=== PATIENT | female | born 1960 | race Caucasian/White ===

== ENCOUNTER 2019-05-24 13:31 | Day surgery (SDC) | payer OTHER ==
[~2019-05-24] VITALS: Ht 210.8 cm; Wt 36.7 kg
[~2019-05-24 13:31] MED LIST: ALBU4; ALBU90OI6 INH; BUDE.5 NEB; COMBIVENT RESPIM4 GM; Flovent 110 MCG12 GM INH; LEVO750 PO; PARO20 PO; PRED10 PO; STIOLTO RESPIMAT4 GM INH; TIOT18 INH; Ventolin5 MG/1 ML INH
--- NOTE | 2019-05-24 13:59 | NUR ---
Ambulatory in Day Surgery History, Chart, Medications and Allergies reviewed before start of procedure. Lungs clear T/O to Auscultation. Patient confirms NPO status and agrees with scheduled surgery. Patient States Post-Procedure ride home has been arranged.
--- NOTE | 2019-05-24 14:02 | NUR ---
05/24/19 1402 Mingo Matthews History, Chart, Medications and Allergies reviewed before start of procedure.MONITOR INTACT WITH CONTINUOUS PULSE OXIMETRY AND INTERMITTENT BP.3-LEAD EKG REVIEWED WITH PHYSICIAN PRIOR TO START OF PROCEDURE.O2 VIA N/C INTACT THROUGHOUT SEDATION/PROCEDURE. See Anesthesia record.
--- NOTE | 2019-05-24 15:09 | NUR ---
Patient up to Ambulate independently. Gait steady. Discharge instructions reviewed with patient. Patient verbalizes understanding. Copy given to patient to take home. Patient States Post-Procedure ride home has been arranged. Discharged via wheelchair to private car for ride home. ALL BELONINGS RETURNED TO PATIENT. CHSCKED TO MAKE SURE PT PERSONAL 02 TANK WAS IN WORKING ORDER AND HAD ENOUGHT 02 IN IT TO GET HOME TO [place]. DR RICE UPDATED.
== END 2019-05-24 23:01 | disposition home or self-care (01) ==
LOC: ORSCMMR 13:31 → ORD 14:30 → ORSCMMR 14:30
PROVIDERS: Internal Medicine Gastroenterology
PROC: 0DBM8ZX Excision of Descending Colon, Via Natural or Artificial Opening Endoscopic, Diagnostic (ICD-10-PCS; principal; 2019-05-24 14:30)
DX: Z12.11 Encounter for screening for malignant neoplasm of colon (principal); D12.4 Benign neoplasm of descending colon; K62.89 Other specified diseases of anus and rectum; K57.30 Diverticulosis of large intestine without perforation or abscess without bleeding; J44.9 Chronic obstructive pulmonary disease, unspecified; Z99.81 Dependence on supplemental oxygen; F17.210 Nicotine dependence, cigarettes, uncomplicated; K64.8 Other hemorrhoids; Z79.899 Other long term (current) drug therapy
CPT/HCPCS: 88305; J2704; J7120

== ENCOUNTER 2019-12-14 10:02 | Inpatient (IN) | payer OTHER ==
[~2019-12-14] VITALS: Ht 160 cm; Wt 39.3 kg
[~2019-12-14 10:02] MED LIST changes: -COMBIVENT RESPIM4 GM; +FLOVENT HFA12 GM INH; -Flovent 110 MCG12 GM INH; +IPRAT-ALBUT 0.5-3 ML NEB; +STIOLTO RESPIMAT4 G1 INH
[2019-12-14 10:42] LABS: BASOPHILS ABSOLUTE AUTO 0.02 K/mm3 (0.00-0.23); BASOPHILS PERCENT AUTO 0 % (0-2); EOSINOPHILS PERCENT AUTO 0 % (0-6); Hematocrit 46.1 % (33.0-51.0); Hemoglobin 14.7 g/dL (11.5-16.0); IMMATURE GRAN ABSOLUTE AUTO 0.03 K/mm3 (0.00-0.10); IMMATURE GRAN PERCENT AUTO 0 % (0-1); LYMPHOCYTES ABSOLUTE AUTO 0.56 K/mm3 (0.84-5.20); LYMPHOCYTES PERCENT AUTO 5 % (21-46); MONOCYTES ABSOLUTE AUTO 0.42 K/mm3 (0.16-1.47); MONOCYTES PERCENT AUTO 4 % (4-13); Mean Corpuscular HGB 30.8 pg (26.0-34.0); Mean Corpuscular HGB Conc 31.9 g/dL (31.5-36.5); Mean Corpuscular Volume 97 fL (80-100); Mean Platelet Volume 9.6 fL (9.1-12.4); NEUTROPHILS ABSOLUTE AUTO 10.07 K/mm3 (1.96-9.15); NEUTROPHILS PERCENT AUTO 91 % (41-73); Platelet Count 291 K/mm3 (150-400); RDW Coefficient Variation 11.5 % (11.7-14.2); Red Blood Cell Count 4.77 M/mm3 (3.80-5.20)
[2019-12-14 11:02] LABS: Alanine Aminotransfer (ALT/SGP 24 U/L (12-78); Albumin, Blood 3.7 g/dL (3.4-5.0); Albumin/Globulin Ratio 0.8 (0.8-1.8); Alk Phos 90 U/L (50-136); Anion Gap 6 mmol/L (6-16); Aspartate Aminotrans (AST/SGOT 47 U/L (12-37); Bilirubin, Total 0.4 mg/dL (0.1-1.0); Blood Urea Nitrogen 17 mg/dL (8-24); Bun/Creatinine Ratio 35.3 (12.0-20.0); CO2, Blood 31 mmol/L (21-32); Calcium, Blood 8.9 mg/dL (8.5-10.1); Chloride, Blood 90 mmol/L (98-108); Creatinine, Blood 0.48 mg/dL (0.40-1.00); Globulin, Blood 4.7 g/dL (2.2-4.0); Glomerular Filtration Rate >60 (60-); Glucose, Blood 84 mg/dL (70-99); Potassium, Blood 4.8 mmol/L (3.5-5.5); Sodium, Blood 127 mmol/L (136-145); Total Protein, Blood 8.4 g/dL (6.4-8.2); Troponin I 0.072 ng/mL (0.000-0.040)
--- NOTE | 2019-12-14 13:52 | NUR ---
Report received from ED. Expect the pt to arrive shortly to PCU 16.
--- NOTE | 2019-12-14 17:56 | NUR ---
Pt arrived from ED; frail, very thin, with obvious dyspnea, use of accessory muscles and retractions noted. Has been wearing oxygen at 3 l/min. Lung sounds noted: wheezing throughout, no crackles. She has been sitting up or lying her arms and head on the overbed table since she got here. Declined suggestion to sit in high perry's position in the bed as she doesn't feel that she can breathe very well that way. STates that she hasn't slept for 2 nights due to her poor respiratory status. Boyfriend Moisés has often been at the bedside.
--- NOTE | 2019-12-14 18:24 | NUR ---
Pt is sitting on side of bed, elbows on the bedside table. Respiratory rate 22-24/minute, mouth closed, oxygen delivery 3 l/min; spo2 92%. Pt states that when she is not sick and at home she usually runs spo2 of about 94%. She is requesting a breathing tx. Called Jimmie Tomas to request.
--- NOTE | 2019-12-14 22:52 | NUR ---
PATIENT IS RESTLESS, MOVING AROUND IN THE BED, SITTING AT THE BEDSIDE, UP TO THE BR INDEPENDENTLY WITH O2 AT 3L NC. PATIENT DID A TRIAL ON THE BIPAP V30 AT THE START OF THE SHIFT, SHE DID NOT FEEL THAT IT HELPED HER. SHE DID AGREE TO TRY AGAIN WHEN SHE IS READY TO GO TO SLEEP. ACCESSORY MUSCLE USE, TRIPOD POSITIONING TO HELP BREATHING, INSPIRATORY WHEEZE THROUGH OUT INSPIRATION, DECREASED LUNG EXCURSION. OXYGEN SATURATIONS VARY FROM 92-97%. SHE IS ALERT AND ORIENTED AND COOPERATIVE WITH CARE. CALL LIGHT IS IN REACH.
[2019-12-15 04:27] LABS: Hematocrit 44.1 % (33.0-51.0); Hemoglobin 13.9 g/dL (11.5-16.0); Mean Corpuscular HGB 30.9 pg (26.0-34.0); Mean Corpuscular HGB Conc 31.5 g/dL (31.5-36.5); Mean Corpuscular Volume 98 fL (80-100); Mean Platelet Volume 9.9 fL (9.1-12.4); Platelet Count 244 K/mm3 (150-400); RDW Coefficient Variation 11.6 % (11.7-14.2); RDW Standard Deviation 41.9 fL (35.1-46.3); White Blood Cell Count 12.55 K/mm3 (4.00-11.30)
[2019-12-15 04:46] LABS: Anion Gap 7 mmol/L (6-16); Blood Urea Nitrogen 25 mg/dL (8-24); Bun/Creatinine Ratio 49.8 (12.0-20.0); CO2, Blood 28 mmol/L (21-32); Calcium, Blood 8.5 mg/dL (8.5-10.1); Chloride, Blood 92 mmol/L (98-108); Glomerular Filtration Rate >60 (60-); Glucose, Blood 55 mg/dL (70-99); Potassium, Blood 5.2 mmol/L (3.5-5.5); Sodium, Blood 127 mmol/L (136-145)
--- NOTE | 2019-12-15 06:03 | NUR ---
AM LABS: GLUCOSE 55, PATIENT ABLE TO EAT ONE CHOCOLATE PUDDING, AND A SMALL PORTION OF A GRAPE AND ORANGE JUICE. PATIENT WAS ABLE TO GET SOME SLEEP, ABOUT 2-3 HOURS A TIMEwHEN AWAKE, PATIENT IS MOVING FROM CHAIR TO BED ATTEMPING TOGET IN AN OPTIMAL POSTITION TO BREATH. NO COMPLAINTS OF PAIN.
--- NOTE | 2019-12-15 10:26 | NUR ---
PT LETHARGIC ASSISTED FROM SITTING POSITION TO LYING POSITION IN BED. PT SLIGHTLY AWAKENED WHEN SPOKEN TO, RUBBED STERNUM. VSS. PLACED CALL OUT TO DR PEREZ.
--- NOTE | 2019-12-15 10:29 | NUR ---
PT TOO SOMNOLENT TO TAKE PO MEDS AT THIS TIME.
[2019-12-15 10:47] LABS: PCO2 Arterial 76 mmHg (35-45); PO2 Arterial 120 mmHg (80-100); pH Blood Arterial 7.19 (7.35-7.45)
--- NOTE | 2019-12-15 11:03 | NUR ---
DR PEREZ IN TO SEE PT.
[2019-12-15 13:06] LABS: Base Excess Venous 1.2 mmol/L; PCO2 Venous 67.4 mmHg (38-42); PO2 Venous 179 mmHg (38-42); pH Blood Venous 7.24 (7.34-7.37)
--- NOTE | 2019-12-15 13:17 | NUR ---
PT RESTLESS/ATTEMTPING POSITIONS OF COMFORT SITTING ON EDGE OF BED. REPORTS FEELS LIKE CANNOT BREATHE IF LIES BACK IN BED. PT AGREEABLE W/KEEPING BIPAP ON. RT IN TO SWITCH PT TO V60.
[2019-12-15 13:52] LABS: Adenovirus Not Detected (NOT DETECT); Coronavirus 229E Not Detected (NOT DETECT); Coronavirus HKU1 Not Detected (NOT DETECT); Coronavirus NL63 Not Detected (NOT DETECT); Coronavirus OC43 Not Detected (NOT DETECT); Human Metapneumovirus Not Detected (NOT DETECT); Human Rhinovirus/Enterovirus Detected (NOT DETECT); SARS-Cov-2 (COVID-19), BioFire Not Detected (NOT DETECT)
[2019-12-15 13:53] LABS: Bordetella pertussis Not Detected (NOT DETECT); Chlamydophila pneumoniae Not Detected (NOT DETECT); Influenza A/2009-H1 Not Detected (NOT DETECT); Influenza A/H1 Not Detected (NOT DETECT); Influenza A/H3 Not Detected (NOT DETECT); Influenza B Not Detected (NOT DETECT); Mycoplasma pneumoniae Not Detected (NOT DETECT); Parainfluenza Virus 1 Not Detected (NOT DETECT); Parainfluenza Virus 2 Not Detected (NOT DETECT); Parainfluenza Virus 3 Not Detected (NOT DETECT); Parainfluenza Virus 4 Not Detected (NOT DETECT); Respiratory Syncytial Virus Not Detected (NOT DETECT)
--- NOTE | 2019-12-15 14:14 | NUR ---
02 SATS/WEAKNESS FOUND PT W/BIPAP OFF/NC ON SITTING ON BSC. OXIMETRY READ 47%. PT WAS RELUCTANT TO PUT BIPAP MASK BACK ON UNTIL EXPLAINED HOW LOW SATS WERE. AGREED AND MASK WAS PLACED. AFTER APPROXIMATELY 5 MINUTES, SATS INCREASED TO 89-90% ON BIPAP. PT VERY WEAK. SIGNICANT OTHER LIFTED PT FROM BSC BACK TO BED. PT UNABLE TO TAKE ANY STEPS. NOW RESTING IN BED W/EYES CLOSED. MATHEMATICAL PHYSICIST IN ROOM W/PT. CALL LIGHT IN REACH.
--- NOTE | 2019-12-15 14:39 | NUR ---
Echocardiogram completed.
--- NOTE | 2019-12-15 15:46 | NUR ---
Patient arrived via gurney from PCU and was a three person slide transfer. She arrived on BIPAP 14/6 and 35% with sats >90%. She is mostly unresponsive and awakens to nocsious stimuli. Systolic 140's and HR ST 93. She MAEW. Restraints were removed while unresponsive.
--- NOTE | 2019-12-15 15:50 | NUR ---
TRANSFERRED TO ICU HEARD PT'S S.O. YELLING AT PT. ENTERED ROOM TO FIND PT HAD REMOVED BIPAP AND SATS WERE IN 70S. PT SITTING ON EDGE OF BED, LEANING FAR FORWARD. PT'S S.O. TRYING TO GET PT TO PUT BIPAP ON AND PT WAS REFUSING. ATTEMPTED TO EXPLAIN TO PT HER SATS WERE DANGEROUSLY LOW AND NEEDED BIPAP, PT SAID WOULD WEAR MASK BUT PULLED AWAY AND BECAME COMBATIVE WHENEVER ATTEMPTED TO PLACE. CALLED CUSTOMS COMPLIANCE MANAGER, ADDY, TO ROOM FOR ASSISTANCE. PT CONTINUED TO BE COMBATIVE WE ATTEMPTED TO PLACE MASK. PT BECAME SOMNOLENT AND BIPAP WAS PLACED. SATS SLOWLY RETURNED FROM 50S TO MID 90S. DURING THIS TIME, STAFF ASSIST CALLED AND OBTAINED ORDERS TO TRANSFER TO ICU. TRANSFERRED PT TO ICU 10, GAVE NEELAM Lo BEDSIDE REPORT.
[2019-12-15 16:16] LABS: pH Blood Arterial 7.11 (7.35-7.45)
[2019-12-15 16:17] LABS: PCO2 Arterial 97 mmHg (35-45); PO2 Arterial 64 mmHg (80-100)
--- NOTE | 2019-12-15 16:40 | NUR ---
ABG done and modification to BIPAP settings 16/6 and 35% FiO2. Placed temp botello and sent UA and tox screen. patient hyperthermic and applied warm plankets temp94.6
[2019-12-15 16:42] LABS: Source, Urine Catheter
[2019-12-15 16:46] LABS: Appearance, Urine Clear (Clear); Bilirubin, Urine Neg (Neg); Blood, Urine 5+ (Neg); Color, Urine Yellow (P-Yellow); Glucose Qualitative, Urine Neg (Neg); Ketones, Urine 2+ (Neg); Leukocyte Esterase, Urine Neg (Neg); Nitrite, Urine Neg (Neg); Protein, Urine 3+ (Neg); Specific Gravity, Urine 1.025 (1.003-1.022); Urobilinogen, Urine NORM (Normal)
[2019-12-15 16:55] LABS: Bacteria Rare /hpf; Hyaline Casts 0-2 /lpf (0-2); Mucus Mod (0-Heavy); Red Blood Cells, Urine 0-2 /hpf (0-2); Renal Epithelial Rare /hpf (0-Rare); Squamous Epithelial Cells Not Seen /hpf (Few); White Blood Cells, Urine 0-2 /hpf (0-5)
[2019-12-15 16:59] LABS: U Amphetamine Screen Not Detected; U Barbituate Screen Not Detected; U Benzodiazapine Screen Not Detected; U Buprenorphine Screen Not Detected; U Cannabinoids Screen Not Detected; U Cocaine Screen Not Detected; U Methadone Screen Not Detected; U Methamphetamine Screen Not Detected; U Opiates Screen Not Detected; U Oxycodone Screen Not Detected; U Phencyclidine Screen Not Detected; U Propoxyphene Screen Not Detected
--- NOTE | 2019-12-15 17:34 | NUR ---
Patient continues resting quietly with bipap in place and not restrained. Bipap /6 45%. Increased FiO2 just recently for sats 87% now 93%.. Patient still ubtunded and responds to noxiouse stimuli.
[2019-12-15 18:05] LABS: Base Excess Venous 3.2 mmol/L; Bicarbonate Venous 24.7 mmol/L (24.0-30.0); PCO2 Venous 92.4 mmHg (38-42); pH Blood Venous 7.15 (7.34-7.37)
--- NOTE | 2019-12-15 18:41 | NUR ---
Patient started to awake and pulling at mask, placed in bilateral soft wrist at 1800 and she is back to resting, Dr Sellers advised of current VBG and she has no new orders for patient or setting, spouse at bedside.
--- NOTE | 2019-12-15 19:20 | NUR ---
ASSUMED CARE REPORT AND BEDSIDE ROUNDING WITH CHRIS KENNY AT 1905. ASSUMED PT CARE. PT OBTUNDED, RESPONSIVE TO NOXIOUS STIMULI. PT ON BIPAP 16/6/35%, SATS >92%, LUNG SOUNDS DIMINISHED THROUGHOUT. 20G TO RIGHT FA, SITE WNL, DRESSING C/D/I. HR 80'S, SINUS RYTHYM, BP STABLE. PULSES PRESENT AND STRONG. SKIN DRY AND JON, COOL, SOME BRUISING AND SCABS NOTED. PT FAMILY AT BEDSIDE, UPDATED ON PLAN OF CARE FOR SHIFT. HE PUT CONTACT INFO ON BOARD AND IS LEAVING FOR THE NIGHT. PT HAS SOFT BILATERAL WRIST RESTRAINTS SECURED. SEE FULL SHIFT ASSESSMENT
[2019-12-15 21:00] LABS: Base Excess Venous 3.2 mmol/L; Bicarbonate Venous 24.8 mmol/L (24.0-30.0); PCO2 Venous 83.6 mmHg (38-42); PO2 Venous 76.9 mmHg (38-42); pH Blood Venous 7.18 (7.34-7.37)
[2019-12-16 03:32] LABS: Base Excess Venous 1.2 mmol/L; PCO2 Venous 70.4 mmHg (38-42); PO2 Venous 82.8 mmHg (38-42); pH Blood Venous 7.22 (7.34-7.37)
[2019-12-16 03:40] LABS: BASOPHILS ABSOLUTE AUTO 0.03 K/mm3 (0.00-0.23); BASOPHILS PERCENT AUTO 0 % (0-2); EOSINOPHILS PERCENT AUTO 0 % (0-6); Hematocrit 40.5 % (33.0-51.0); Hemoglobin 12.6 g/dL (11.5-16.0); IMMATURE GRAN ABSOLUTE AUTO 0.39 K/mm3 (0.00-0.10); IMMATURE GRAN PERCENT AUTO 2 % (0-1); LYMPHOCYTES PERCENT AUTO 4 % (21-46); MONOCYTES ABSOLUTE AUTO 0.64 K/mm3 (0.16-1.47); MONOCYTES PERCENT AUTO 3 % (4-13); Mean Corpuscular HGB 30.9 pg (26.0-34.0); Mean Corpuscular HGB Conc 31.1 g/dL (31.5-36.5); Mean Corpuscular Volume 99 fL (80-100); Mean Platelet Volume 9.9 fL (9.1-12.4); NEUTROPHILS ABSOLUTE AUTO 17.14 K/mm3 (1.96-9.15); NEUTROPHILS PERCENT AUTO 91 % (41-73); Platelet Count 189 K/mm3 (150-400); RDW Coefficient Variation 11.7 % (11.7-14.2); RDW Standard Deviation 42.6 fL (35.1-46.3); Red Blood Cell Count 4.08 M/mm3 (3.80-5.20)
[2019-12-16 03:56] LABS: Albumin, Blood 3.4 g/dL (3.4-5.0); Anion Gap 5 mmol/L (6-16); Blood Urea Nitrogen 38 mg/dL (8-24); Bun/Creatinine Ratio 59.4 (12.0-20.0); CO2, Blood 30 mmol/L (21-32); Calcium, Blood 8.3 mg/dL (8.5-10.1); Chloride, Blood 96 mmol/L (98-108); Creatinine, Blood 0.64 mg/dL (0.40-1.00); Glomerular Filtration Rate >60 (60-); Glucose, Blood 70 mg/dL (70-99); Phosphorus, Blood 3.6 mg/dL (2.5-4.9); Potassium, Blood 5.6 mmol/L (3.5-5.5); Sodium, Blood 131 mmol/L (136-145)
--- NOTE | 2019-12-16 06:20 | NUR ---
SHIFT SUMMARY PT HAD EVENTFUL NIGHT. PT ALERT TO SELF ONLY BUT MOSTLY RESPONSIVE TO TACTILE STIMULI. PT ON BIPAP 16/6/40%, TOLERATING AT TIMES. PT IN BILATERAL SOFT WRIST RESTRAINTS TO PREVENT REMOVAL OF IVS AND BIPAP MASK (PT DOES NOT TOLERATE BEING OFF BIPAP AND SATS DROP). RESP RATE 16-28, LUNG SOUNDS OVERALL DIMINISHED AND SHALLOW. SATS >92%. PT SR TO ST ON THE MONITOR. BP HAVE BEEN ALL OVER. PRESSURES CURRENTLY WNL DUE TO LEVOPHED INF AT 0.3MCG/MIN (STARTED FOR MULT BP <80 SYSTOLIC). PT HAS PRECEDEX INFUSING AT 0.7MCG/KG/HR TO ALLOW FOR BIPAP. PT HAS NS INFUSING AT 75ML/HR. PER NURSING JUDGEMENT PT KEPT NPO DUE TO RESP DISTRESS AND CONFUSION. SKIN OVERALL DRY AND PALE AND FRAGILE. BRUISING TO EXT, SCAB TO LEFT HAND. PULSES WNL. PATENT TEMP PROBE DUTTA DRAINING SAMEER URINE. PT REQUIRED TWO IVF BOLUSES (RESPONDED WELL). PT HAS 20G TO RIGHT FA, SITE WNL, DRESSING C/D/I. PT HAS 20G TO LEFT AC WITH MEDS INFUSING, SITE WNL, SITE C/D/I. NEW 18G TO RIGHT AC, SITE WNL, DRESSING C/D/I. DAUGHTER JUSTYNA PLANS TO VISIT TODAY FROM [employer], I SPOKE WITH PT BOYFRIEND DAYANA AND UPDATED HIM ON HOW RENATO DID. INSTRUCTED HIM TO ALSO COME DURING VISITING HRS. FAMILY NEEDS TO DISCUSS PT WISHES AND PLAN OF CARE WITH PROVIDER/STAFF. WILL REPORT TO ONCOMING SHIFT.
--- NOTE | 2019-12-16 07:07 | NUR ---
Received report from Kvng KENNY. Patient is sleeping on BIPAP, setting 16/6 40% FiO2 and sats 97%. She responds to noxious stimuli. She is sedated with Precedex 0.7 mcg/kg/hr. She has three IV's 20ga LFA, 18 ga RAC, 18 ga RFA, all dressings intact and sites WNL's. She has Levophed infusing at 4 mcg/min, NS at 75 ml/hr. She has 16 Fr temp botello draining to gravity small amounts of clear yellow urine. She has bilateral soft wrist as when she awakens she pull mask off and lines. RT in room with patient now, no new changes.
--- NOTE | 2019-12-16 09:45 | NUR ---
Patient remains on same vent settings and continues to sat >95%. She remains on same gtts without changes to settings. Bilateral soft wrist restraints for patient line, tubes safety, Significant other at bedside. Held meds until Dr Sellers arrives that are PO meds to see which ones we can change, IV meds given. poor urine output continues.
--- NOTE | 2019-12-16 11:40 | NUR ---
No significant changes with patient. No changes in BIPAP and gtt's. Dr Sellers medt with daughter and significant other and gave update. They want to meet with palliative care and have conference to help with decisions. VSS, See EMR.
[2019-12-16 12:41] LABS: Base Excess Venous -0.4 mmol/L; Bicarbonate Venous 22.6 mmol/L (24.0-30.0); PCO2 Venous 74.7 mmHg (38-42); PO2 Venous 72.2 mmHg (38-42); pH Blood Venous 7.18 (7.34-7.37)
--- NOTE | 2019-12-16 13:30 | NUR ---
Placed 5Fr triple lumen PICC in MAXIME prior to intubation. Same vent and gtt settings. VSS Stable on vent setting but poor ang VBG #'s. She remains in bilateral soft UE restraints. When awakening she still trys to pull at lines and mask.
--- NOTE | 2019-12-16 14:35 | NUR ---
Met with Keiry's dtr, Uriel, and Carl Curiel in ICU waiting room. Pt is currently being intubated and nursing would like PC to have a discussion re: goals of care. Uriel and Moisés state that they have been kept informed by MD and nursing of Keiry's current situation. We discussed disease process and trajectory, treatment options and code status. At this time they would like to have Keiry intubated but do not want to have chest compressions done. Moisés and Uriel would like to take some time to think about if they would like to have Keiry had defibrillation if that would be indicated. Answered their questions and provided them with the booklet hard choices for loving people. Explained now that Keiry is intubated staff will wait to see how she does. Explained that pt's with COPD sometimes have difficulty being extubated. Emotional support given. PC will continue to follow for advanced care planning, symptom management and family support.
--- NOTE | 2019-12-16 15:27 | NUR ---
Patient intubated at 1400, 7.0 ET24 at teeth. Settings AC18, TV 350, Peep 5.0, and FiO2 of 35% with sats >95%. Precedex off Propofol at 60 mcg/kg/min, Levophed at 4 mcg/min, NS at 75ml/hr, placed OG and is clamped, sent sputum sample. Dr Sellers used Etomadate, and Rocuronium for intubation. Wilhelm still draining to gravity small amounts of cleaer yellow urine.
[2019-12-16 16:21] LABS: Base Excess Venous -3.9 mmol/L; Bicarbonate Venous 20.8 mmol/L (24.0-30.0); PCO2 Venous 48.2 mmHg (38-42); PO2 Venous 46.3 mmHg (38-42); pH Blood Venous 7.28 (7.34-7.37)
--- NOTE | 2019-12-16 17:36 | NUR ---
Patient remains intubated and sedated with current vent setting after Dr Sellers made adjustments is AC 14, TV 370, Fio2 35% and PEEP 5 with Sats >94%. She continues to cough occassionally and tries to sit up. Levophed at 5mcg/min with systolic 110's and HR's 70-80's SR. NS continues at 75ml/hr, and Precedex remains off. Patient being sedated propofol at 60mcg/kg/hr and doing well. Wilhelm draing to gravity 350 ml clear yellow urine with 1393 IV in.
--- NOTE | 2019-12-16 21:59 | NUR ---
ASSUMED CARE OF PT, REPORT RCV'D FROM ZOYA RICHTER. PT INTUBATED AND SEDATED, PT WITHDRAWS FROM PAINFUL STIMULI AND IS EASILY AGITATED WITH NOXIOUS STIMULI. VENT SETTINGS AC 14/370/5/35%. SEDATED WITH PROPOFOL 60 MCG/KG/MIN. LEVOPHED INFUSING AT 5 MCG/MIN AT START OF SHIFT, DECREASED TO 4 MCG/MIN AT 2044, MAP>65 AT THIS TIME. WHEEZES HEARD T/O WITH DIM BASES. TEMP DUTTA PATENT AND DRAINING TO GRAVITY. PICC LINE PLACED IN MAXIME, OOZING AROUND SITE. PER PICC NURSE, LEAVE DRESSING TODAY TO FORM CLOT AND CHANGE DURING DAYSHIFT TOMORROW. SEE FULL SHIFT ASSESSMENT.
--- NOTE | 2019-12-17 01:43 | NUR ---
PT DIFFICULT TO SEDATE. PROPOFOL @75 MCG/KG/MIN, 50 MCG FENTANYL GIVEN AND PT STILL THRASHING HEAD BACK/FORTH CAUSING HER TO BECOME DISCONNECTED FROM VENT. RESTARTED PRECEDEX GTT TO ASSIST WITH SEDATION AND ENCOURAGE DECREASED USE OF PROPOFOL.
[2019-12-17 04:12] LABS: BASOPHILS ABSOLUTE AUTO 0.01 K/mm3 (0.00-0.23); BASOPHILS PERCENT AUTO 0 % (0-2); EOSINOPHILS PERCENT AUTO 0 % (0-6); Hematocrit 35.6 % (33.0-51.0); IMMATURE GRAN ABSOLUTE AUTO 0.09 K/mm3 (0.00-0.10); IMMATURE GRAN PERCENT AUTO 1 % (0-1); LYMPHOCYTES ABSOLUTE AUTO 0.08 K/mm3 (0.84-5.20); LYMPHOCYTES PERCENT AUTO 1 % (21-46); MONOCYTES ABSOLUTE AUTO 0.18 K/mm3 (0.16-1.47); MONOCYTES PERCENT AUTO 2 % (4-13); Mean Corpuscular HGB 30.6 pg (26.0-34.0); Mean Corpuscular HGB Conc 30.9 g/dL (31.5-36.5); Mean Corpuscular Volume 99 fL (80-100); NEUTROPHILS ABSOLUTE AUTO 9.89 K/mm3 (1.96-9.15); NEUTROPHILS PERCENT AUTO 96 % (41-73); Platelet Count 154 K/mm3 (150-400); RDW Coefficient Variation 11.9 % (11.7-14.2); RDW Standard Deviation 43.8 fL (35.1-46.3); Red Blood Cell Count 3.59 M/mm3 (3.80-5.20); White Blood Cell Count 10.25 K/mm3 (4.00-11.30)
[2019-12-17 04:19] LABS: Base Excess Venous -0.7 mmol/L; Bicarbonate Venous 23.4 mmol/L (24.0-30.0); PCO2 Venous 49.2 mmHg (38-42); PO2 Venous 67.3 mmHg (38-42); pH Blood Venous 7.32 (7.34-7.37)
[2019-12-17 04:31] LABS: Anion Gap 6 mmol/L (6-16); Blood Urea Nitrogen 26 mg/dL (8-24); Bun/Creatinine Ratio 49.5 (12.0-20.0); CO2, Blood 27 mmol/L (21-32); Calcium, Blood 7.9 mg/dL (8.5-10.1); Chloride, Blood 103 mmol/L (98-108); Creatinine, Blood 0.53 mg/dL (0.40-1.00); Glomerular Filtration Rate >60 (60-); Glucose, Blood 82 mg/dL (70-99); Potassium, Blood 4.8 mmol/L (3.5-5.5); Sodium, Blood 136 mmol/L (136-145)
--- NOTE | 2019-12-17 06:48 | NUR ---
SHIFT SUMMARY PT REMAINS INTUBATED AND SEDATED. VENT SETTINGS AC 14/370/5/25%, PROPOFOL @45 MCG/KG/MIN, PRECEDEX @0.7 MCG/KG/HR, WITH 50 MCG FENTANYL ADJUNCT TO SEDATION. PT DIFFICULT TO SEDATE. LUNG SOUNDS WHEEZY T/O. LEVOPHED GTT OFF AT 0200, BP REMAINS STABLE AND WNL SINCE. 500 ML URINARY OUTPUT FROM CATHETER. PT HAD ONE EPISODE @0600 OF SATS DROPPING TO 56%, FI02 INCREASED TO 100% AND ADDITIONAL SEDATION GIVEN D/T PT FLAILING IN BED. PT REQUIRED APPROXIMATELY 5 MINUTES OF 100% FI02 AND 50 MCG FENTANYL BEFORE RECOVERING. VENT SETTINGS AND SEDATION REMAIN UNCHANGED. WILL REPORT TO DAYSWYFT NURSE.
--- NOTE | 2019-12-17 08:15 | NUR ---
ASSUMED CARE PT. REMAINS SEDATED AND INTUBATED AT THIS TIME. PT. RESPONDS TO PAINFUL STIMULI AND BETH WITH STIMULATION. PT. VENT SETTINGS OF AC 14,TV370, PEEP 5, 25% FIO2. WHEEZES NOTED T/O. PT. HAS PICC LINE INFUSING TO MAXIME. OG TUBE IN PLACE HOWEVER UNALBE TO ASPIRATE AND UNABLE TO FLUSH. OG TUBE PULLED AND WILL BE REPLACED. PT. VSS THIS AM. NADN. PRECEDEX GTT AND PROPOFOL INFUSING FOR SEDATION SEE FLOW SHEET. BILATERAL WRIST RESTRAINTS IN PLACE FOR SAFETY.
--- NOTE | 2019-12-17 10:08 | NUR ---
Met with pt's dtr in ICU. Keiry remains intubated and sedated at this time. Emotional support provided to pt's dtr. Dtr that is here today was not able to be here yesterday. She is tearful, but appropriate and asks questions. Keiry appears comfortable at this time. PC will continue to follow.
--- NOTE | 2019-12-17 11:44 | NUR ---
NEW OG TUBE PLACED VERIFIED VIA AUSCULTATION AND GASTRIC CONTENT RETURN. SECURED WITH PINK TAPE AND FLUSHED WITH 30CC H2O
--- NOTE | 2019-12-17 15:07 | NUR ---
SEDATION VACATION ATTEMPTED TO LOWER PT SEDATION. PT. BEGAN SITTING UP IN BED PULLING ON RESTRAINTS ATTEMPTING TO REACH TOWARDS TUBE. PT. SQUEEZES HANDS TO COMMAND BUT HAS UPWARD GAZE. PT. ARCHES BACK AND THROWS HEAD BACK AND IS RESTLESS IN BED. PT. HR INCREASED TO 130S, BP INCREASED WELL. PT GAGGING ON TUBE AND NOT REORIENTABLE. SEDATION RESTARTED AND FENTANYL PRN GIVEN. PT. CALMED AFTER RESTARTING SEDATION AND HR RETURNED TO BASELINE ALONG WITH BP.
--- NOTE | 2019-12-17 17:13 | NUR ---
SHIFT SUMMARY PT. REMAINS SEDATED AND INTUBATED. PT. DID NOT TOLERATE SEDATION VACATION WELL TODAY BECAME AGGITATED QUICKLY AND WAS DIFFICULT TO RESEDATE. PT. WAS STARTED ON TF TODAY, VITAL HIGH PROTEIN AT 25ML/HR WITH 30ML FLUSH Q4H. PT. REMAINED AFEBRILE, VENT SETTINGS UNCHANGED. FAMILY UPDATED T/O THE DAY. VSS. REPORT TO ONCOMING RN.
--- NOTE | 2019-12-17 17:28 | NUR ---
Initial spiritual care note: No family present at time of visit. Silent prayer and presence provided. I will remain available to family.
--- NOTE | 2019-12-17 21:38 | NUR ---
ASSUMED CARE OF PT, REPORT RCV'D FROM ZOYA NEAL. PT INTUBATED AND SEDATED. VENT SETTINGS AC 14/370/5/30%. PROPOFOL @45 MCG/KG/MIN, PRECEDEX 1.4 MCG/KG/HR. PT EASILY AGITATED AND DIFFICULT TO SEDATED. PT OPENS EYES SPONTANEOUSLY WITH UPWARD GAZE. PT FAILS TO FOLLOW COMMANDS OR OPEN EYES TO VERBAL STIMULI. INSPIRATORY AND EXPIRATORY WHEEZES HEARD BILATERAL UPPER/LOWER LOBES. MINIMAL AMOUNT OF SECRETIONS FROM ETT. TUBE FEEDING INFUSING INTO OGT AT GOAL RATE 25 ML/HR WITH 30 ML Q4 FLUSH. BILATERAL SOFT WRIST RESTRAINTS IN PLACE. TEMP DUTTA PATENT AND DRAINING. PT TEMP 95.9, COVERED PT WITH WARM BLANKETS AND TURNED UP HEAT IN ROOM. PT'S DAUGHTER (JUSTYNA) CALLED, UPDATED WITH PT'S STATUS AND PLAN OF CARE. SEE FULL SHIFT ASSESSMENT.
--- NOTE | 2019-12-17 23:33 | NUR ---
PT SUDDENLY SITTING STRAIGHT UP IN BED ATTEMPTING TO GRAB ETT AND SELF-EXTUBATE. PT'S SATS DROPPED TO 85%. PROPOFOL INCREASED TO 60 MCG/KG/MIN, PRECEDEX REMAINS AT 1.4 MCG/KG/HR, AND PT GIVEN 50 MCG OF FENTANYL. PT RESPONDING TO VERBAL STIMULI AND FOLLOWING COMMANDS TO "SQUEEZE HAND". PT KICKING LEGS VIOLENTLY TRYING TO MOVE HERSELF TO ACCESS ETT. PT PLACED IN BILATERAL SOFT ANKLE RESTRAINTS. BILATERAL SOFT WRIST RESTRAINTS REMAIN TIGHTLY SECURED TO BED. CURTAIN AND DOOR REMAIN OPEN.
[2019-12-18 04:39] LABS: BASOPHILS PERCENT AUTO 0 % (0-2); EOSINOPHILS PERCENT AUTO 0 % (0-6); Hematocrit 34.2 % (33.0-51.0); Hemoglobin 10.9 g/dL (11.5-16.0); IMMATURE GRAN ABSOLUTE AUTO 0.04 K/mm3 (0.00-0.10); IMMATURE GRAN PERCENT AUTO 1 % (0-1); LYMPHOCYTES ABSOLUTE AUTO 0.15 K/mm3 (0.84-5.20); LYMPHOCYTES PERCENT AUTO 2 % (21-46); MONOCYTES ABSOLUTE AUTO 0.25 K/mm3 (0.16-1.47); MONOCYTES PERCENT AUTO 4 % (4-13); Mean Corpuscular HGB 31.1 pg (26.0-34.0); Mean Corpuscular HGB Conc 31.9 g/dL (31.5-36.5); Mean Corpuscular Volume 97 fL (80-100); Mean Platelet Volume 9.6 fL (9.1-12.4); NEUTROPHILS ABSOLUTE AUTO 5.79 K/mm3 (1.96-9.15); NEUTROPHILS PERCENT AUTO 93 % (41-73); Platelet Count 148 K/mm3 (150-400); RDW Coefficient Variation 12.4 % (11.7-14.2); RDW Standard Deviation 44.5 fL (35.1-46.3); Red Blood Cell Count 3.51 M/mm3 (3.80-5.20); White Blood Cell Count 6.23 K/mm3 (4.00-11.30)
[2019-12-18 05:04] LABS: Anion Gap 4 mmol/L (6-16); Blood Urea Nitrogen 16 mg/dL (8-24); Bun/Creatinine Ratio 38.6 (12.0-20.0); CO2, Blood 30 mmol/L (21-32); Chloride, Blood 102 mmol/L (98-108); Creatinine, Blood 0.41 mg/dL (0.40-1.00); Glomerular Filtration Rate >60 (60-); Glucose, Blood 124 mg/dL (70-99); Magnesium, Blood 2.4 mg/dL (1.6-2.4); Phosphorus, Blood 1.5 mg/dL (2.5-4.9); Potassium, Blood 4.3 mmol/L (3.5-5.5); Sodium, Blood 136 mmol/L (136-145)
--- NOTE | 2019-12-18 06:22 | NUR ---
SHIFT SUMMARY PT REMAINS INTUBATED, VENT SETTINGS AC 14/370/5/25%. SEDATED WITH PROPOFOL 45 MCG/KG/MIN, PRECEDEX 1.4 MCG/KG/HR, AND 50 MCG FENTANYL Q1-2H. PT REMAINS IN 4 PT SOFT RESTRAINTS SHE OCCASIONALLY SITS UP IN BED AND BEGINS THRASHING AND KICKING. PT DISCONNECTED VENT ON ONE OCCASION BY THRASHING HEAD AND WAS USING HER LEGS/FEET TO DISCONNECT CORDS. LUNG SOUNDS REMAIN UNCHANGED, WHEEZY T/O. MINIMAL AMOUNT OF SECRETIONS FROM ETT. VSS T/O SHIFT. WILL REPORT TO DAYSHIFT NURSE.
--- NOTE | 2019-12-18 08:04 | NUR ---
Received report from Jacoby KENNY. Patient resting with sedationa nd intubated. She has 7.0 ET and 24 cm at teeth, with vent settings of AC 14, TV 370, FiO2 25%, PEEP 5.0 and sats >90%. She has PICC to [facility] and is infuaing Prpofol at 45 mcg/kg/min, Precedex 1.4 mcg/kg/min, NS 10. She has OG in place with VHP infusing at 25ml goal rate and 30 ml water flushes q4. She is in 4 point soft restraints to protect lines and tubes as she is sitting up in bed and thrashing legs itermittently. Sister has been at bedside since 729. Medicated for pain per MAY. She has 16 Fr temp botello draining to gravity clear yellow urine. She has two peripheral IV right arm dressings intact and sites WNL, flushed and SL'd.
--- NOTE | 2019-12-18 09:30 | NUR ---
Patient continues rto rest on sedtation while intubated. Dr Oliva by to assess and placed on Spon mode with PS 5 Peep 5, FiO2 35%.No changes to any gtt as of this am note. She contnues to awaken intermitently and trys to sit up and is awake enough to knod to questions and goes back to sleep after medicating for pain and agitation. VSS, See EMR.
--- NOTE | 2019-12-18 11:23 | NUR ---
Patient has been started on Fenatnyl gtt at 13 mcg/hr and at 1030 was placed back on AC mode r/t low TV 200's. No gtt setting changes. VSS, See EMR. Precedex 1.5 mcg/kg/hr Propofol 45 mcg/kg/min Fentanyl 13 mcg/hr NS TKO Sodium Phos 110 ml/hr
--- NOTE | 2019-12-18 13:30 | NUR ---
patient has been resting quietly since starting Fentanyl gtt at 13 mcg/min. Vent setting AC 14, TV 370, FiO2 25%, PEEP 5.0 and sats 96%. Shehas infusnig Propofol 45 mcg/kg/min, Precedex 1.4 mcg/kg/hr, NS TKO, Fentanyl 13 mcg/hr. Wilhelm draing small amounts of green tint urine, less than 30 ml/hr. VSS, SEE EMR. OG infusing 25ml/hr of VHP with 30ml water flushes Q4. She remains in 4 point restraints for line and tube protection.
--- NOTE | 2019-12-18 15:32 | NUR ---
No significant changes from last note.
--- NOTE | 2019-12-18 16:29 | NUR ---
Patient received bath and linen change. Changed complete PICC line dressing and is currently at 9cm out and ok to use per Dr Oliva. VSS, See EMR emptied since last lasix 1850 green tint urine. Pulled IV in RAC as it was bleeding. Oral care and repositioning.
--- NOTE | 2019-12-18 17:59 | NUR ---
Patient currently resting well adn remains on vent with setting AC14, TV 370m FiO2 25%, PEEP 5.0 and sats >95%. She has infusing to PICC; Propofol 45 mcg/kg/min, Precedex 0.7 mcg/kg/hr, NS TKO, Fentanyl 13 mcg/hr. Wilhelm put out 1850 ml.
--- NOTE | 2019-12-18 21:43 | NUR ---
ASSUMED CARE OF PT, REPORT RCV'D FROM ZOYA RICHTER. PT INTUBATED, VENT SETTINGS AC 14/370/5/25%. SEDATED WITH PROPOFOL 45 MCG/KG/MIN, PRECEDEX 1 MCG/KG/HR, AND FENTANYL GTT @13 MCG/HR. ORDER FOR FENTANYL GTT IS 12.5 MCG/HR, PUMP CANNOT BE PROGRAMMED FOR .5 MCG, DR. GANT AWARE AND OK WITH 13 MCG/HR INFUSION RATE. PT ALERT TO SOUND, SPONTANEOUSLY OPENS EYES, MOVES ALL EXTREMETIES, PULLS ON RESTRAINTS. PATIENT IN SOFT RESTRAINTS X4 TO PREVENT ACCIDENTAL SELF-EXTUBATION AND PROTECT LINES/CORDS. OGT IN PLACE, VITAL HIGH PROTEIN INFUSING AT GOAL RATE 25 ML/HR WITH 30 ML Q4 FLUSH. TEMP DUTTA PATENT AND DRAINING TO GRAVITY. VSS AT THIS TIME. SEE FULL SHIFT ASSESSMENT.
[2019-12-19 04:48] LABS: BASOPHILS ABSOLUTE AUTO 0.01 K/mm3 (0.00-0.23); BASOPHILS PERCENT AUTO 0 % (0-2); EOSINOPHILS PERCENT AUTO 0 % (0-6); Hematocrit 35.5 % (33.0-51.0); Hemoglobin 11.3 g/dL (11.5-16.0); IMMATURE GRAN ABSOLUTE AUTO 0.03 K/mm3 (0.00-0.10); IMMATURE GRAN PERCENT AUTO 0 % (0-1); LYMPHOCYTES ABSOLUTE AUTO 0.25 K/mm3 (0.84-5.20); LYMPHOCYTES PERCENT AUTO 4 % (21-46); MONOCYTES PERCENT AUTO 6 % (4-13); Mean Corpuscular HGB 30.9 pg (26.0-34.0); Mean Corpuscular HGB Conc 31.8 g/dL (31.5-36.5); Mean Corpuscular Volume 97 fL (80-100); Mean Platelet Volume 10.1 fL (9.1-12.4); NEUTROPHILS ABSOLUTE AUTO 6.28 K/mm3 (1.96-9.15); NEUTROPHILS PERCENT AUTO 90 % (41-73); Platelet Count 142 K/mm3 (150-400); RDW Coefficient Variation 12.6 % (11.7-14.2); RDW Standard Deviation 45.1 fL (35.1-46.3); Red Blood Cell Count 3.66 M/mm3 (3.80-5.20); White Blood Cell Count 6.97 K/mm3 (4.00-11.30)
[2019-12-19 05:01] LABS: Anion Gap 2 mmol/L (6-16); Blood Urea Nitrogen 17 mg/dL (8-24); Bun/Creatinine Ratio 39.9 (12.0-20.0); CO2, Blood 38 mmol/L (21-32); Calcium, Blood 7.7 mg/dL (8.5-10.1); Chloride, Blood 98 mmol/L (98-108); Creatinine, Blood 0.43 mg/dL (0.40-1.00); Glomerular Filtration Rate >60 (60-); Glucose, Blood 131 mg/dL (70-99); Phosphorus, Blood 2.3 mg/dL (2.5-4.9); Potassium, Blood 3.5 mmol/L (3.5-5.5); Sodium, Blood 138 mmol/L (136-145)
--- NOTE | 2019-12-19 06:11 | NUR ---
SHIFT SUMMARY PT REMAINS INTUBATED AND SEDATED. VENT SETTINGS REMAIN UNCHANGED. SEDATED WITH PROPOFOL 45 MCG/KG/MIN, FENTANYL GTT @ 13 MCG/HR, PRECEDEX 1 MCG/KG/HR. ATTEMPTED TO TITRATE PROPOFOL INFUSION RATE DOWN, PT BECOMES VERY AGITATED. PT IS NOT FOLLOWING COMMANDS AT THIS TIME BUT DURING RANGE OF MOTION EXERCISE PT IS PURPOSEFULLY PUSHING AWAY. VITAL HIGH PROTEIN CONTINUES TO INFUSE AT GOAL RATE OF 25 ML/HR. 1800 ML CLEAR YELLOW URINARY OUTPUT FROM CATHETER. VSS T/O SHIFT. WILL REPORT TO DAYSHIFT NURSE.
--- NOTE | 2019-12-19 07:54 | NUR ---
Assumed care of pt at 0700. Bedside report received from Jacoby KENNY. Pt sedated with 45 mcg/kg/min propofol, 1 mcg/kg/hr precedex, and 13 mcg/hr fentanyl, infusing through PICC line. Pt opens eyes spontaneously. Withdraws from painful stimulus. Cough and gag reflexes present. Pt has all four extremities in restraints due to self-extubation risk as well as protection of other cords and lines, will continue to assess continued need for restraint. OG tube present with feeds per orders. BT present in all quadrants. Wilhelm catheter in place patent and draining yellow urine. Pt ventilated through 7.0 cm ETT, 24 cm CIARAN. Vent settings AC 14/370/5/25%. SpO2 90% or greater. Lungs are dim with expiratory wheezes t/o. Small amount of thick white secretions aspriated from ETT.
--- NOTE | 2019-12-19 09:30 | NUR ---
Patient grimacing. Also tachycardic with HR at 113. HR has been steadily increasing for several hours. Pt medicated for pain. HR decreased down to 90s.
--- NOTE | 2019-12-19 09:45 | NUR ---
Dr Oliva in room to discuss plan with pt's daughter. Pt placed on spontaneous mode on ventilator with PS 5/5 and 30% FiO2. RR 12-14 with tidal volumes 450-550. Fentanyl drip turned off per orders from Dr Oliva. TF turned off per orders from Dr Oliva.
--- NOTE | 2019-12-19 11:33 | NUR ---
Pt extubated at 1050 to BiPAP 10/5 and 30% FiO2. Pt alert. Oriented to self and place. Pt's daughter at bedside, providing verbal redirection and comfort to patient, which pt is receptive to. Pt following commands, cooperative with care. All restratints removed at time of extubation. OG tube removed at time of extubation. Propofol turned off prior to extubation. Fentanyl drip remains off. Pt remains on 1 mcg/kg/hr precedex. Shortly after extubation, pt sat up in bed tripoding. SpO2 dropped to 67% with excellent pleth and HR that correlated with HR via heart monitor. Dr Oliva notified. One time dose of 25 mcg fentanyl given. Pt receiving nebulizers via BiPAP.
--- NOTE | 2019-12-19 12:20 | NUR ---
Precedex turned off per verbal orders from Dr Oliva.
--- NOTE | 2019-12-19 15:03 | NUR ---
Pt remains off precedex, remains out of restraints. Tolerating BiPAP well. Pt is alert. Pleasant and cooperative with care. Follows commands. Communicates needs by writing. BiPAP setting currently 10/5 and 40% FiO2. SpO2 90% or greater. O2 needs have been labile and FiO2 has been repeately titrated between 30% and 40%. This RN adjusted face mask without completely taking it off, and this activity caused pt to desaturate to 82%. Dr Oliva states plan for pt to remain on BiPAP and take breaks with AirVO instead of nasal cannula.
--- NOTE | 2019-12-19 16:05 | NUR ---
Pt anxious, tearful. HR 100-105 and having occasional short runs of tachycarida with HR 130s-150 that occur spontaneously and resolve spontaneously. Dr Oliva notified. Provider states he would like precedex to remain off at this time, however he would like pt to receive one time dose of 0.5 mg ativan, IV. Also notified that RT would like duoneb changed to Q4, as the order is currently Q4 while awake. New orders received.
--- NOTE | 2019-12-19 19:56 | NUR ---
SUMMARY Pt has worn BiPAP continuously since extubation. Tolerating well. 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 Pt gets anxious, orders given for ativan per Dr Oliva. Precedex drip at bedside, on standby at this time. Provider ordered EKG for concern about ST depression. Provider would also like troponins obtained and a dose of 30 mg lovenox to be given now, even though pt already got a dose this morning.
--- NOTE | 2019-12-19 21:08 | NUR ---
ASSUMED CARE OF PT, REPORT RCV'D FROM ZOYA BLISS. PT ALERT AND ORIENTED SITTING IN HIGH FOLWERS POSITION ON BIPAP. BIPAP SETTINGS 10/5 40% WITH SATS IN THE MID 90'S. ATTEMPTING TO REMOVE MASK TO PERFORM ORAL CARE AND GIVE PO MEDICATIONS AND PT SATS DROPPED TO 83%. MASK REPLACED AND PT RECOVERED QUICKLY. DUTTA PATENT AND DRAINING TO GRAVITY. BED IN LOW/LOCKED POSITION, CALL LIGHT IN PT'S HAND. SEE FULL SHIFT ASSESSMENT.
--- NOTE | 2019-12-19 22:50 | NUR ---
PT TACHYCARDIC WITH HR 120'S AND HYPERTENSIVE SBP 170'S-190'S. PT REPORTING ANXIETY, TREATED PER EMAR WITH NO IMPROVEMENT IN SYMPTOMS. PT TAKEN OFF BIPAP FOR SHORT PERIOD OF TIME SO THAT SHE COULD CONVEY NEEDS, PT DESATTED TO 73%. CALL TO RT TO TRY PT ON AIRVO TO SEE IF SHE WOULD BE LESS ANXIOUS NOT HAVING A MASK ON HER FACE. PT AGREES TO TRY AIRVO. WILL RESTART PRECEDEX IF NEEDED TO CONTROL ANXIETY.
--- NOTE | 2019-12-19 23:39 | NUR ---
PT RESTARTED ON PRECEDEX 0.7 MCG/KG/HR TO ASSIST WITH ANXIETY. PT CURRENTLY RESTING COMFORTABLE ON AIRVO 30L/30%, HR DECREASED FROM 125 TO 98, RR 17, SBP DECREASED FROM 170'S-190'S TO SBP OF 130'S. SATS IN MID 90'S. PT DENIES ANXIETY OR NEEDS AT THIS TIME.
[2019-12-20 04:28] LABS: Anion Gap 0 mmol/L (6-16); Blood Urea Nitrogen 13 mg/dL (8-24); CO2, Blood 39 mmol/L (21-32); Calcium, Blood 8.1 mg/dL (8.5-10.1); Chloride, Blood 101 mmol/L (98-108); Creatinine, Blood 0.39 mg/dL (0.40-1.00); Glomerular Filtration Rate >60 (60-); Glucose, Blood 93 mg/dL (70-99); Phosphorus, Blood 2.7 mg/dL (2.5-4.9); Potassium, Blood 3.9 mmol/L (3.5-5.5); Sodium, Blood 140 mmol/L (136-145)
--- NOTE | 2019-12-20 06:20 | NUR ---
SHIFT SUMMARY PT REMAINS ALERT AND ORIENTED. CURRENTLY ON AIRVO 30L/30% WITH SAT>90%. PT REPORTS FEELING MORE COMFORTABLE AND LESS ANXIOUS ON AIRVO ALTHOUGH SHE STILL REMAINS SITTING IN HIGH FOWLERS POSITION. PRECEDEX GTT INFUSED FROM [id number]. PT HAS NOT EXPERIENCED ANY FURTHER ANXIETY SINCE GTT TURNED OFF. PT REPORTS 6/10 PAIN IN HER THROAT, TREATED PER EMAR WITH MINIMAL RESULTS. PT'S VOICE RASPY AND SOFT. PT BECOMES DYSPNEIC WHEN TALKING. PO MEDS HELD D/T ASPIRATION CONCERNS. LUNG SOUNDS REMAIN UNCHANGED, PT HAS OCCASIONAL NON-PRODUCTIVE COUGH. 450 ML DARK URINARY OUTPUT FROM DUTTA CATH. PT AFEBRILE AND ALL VSS AT THIS TIME. MORNING TROPONIN INCREASED FROM 0.025 TO 0.122 WILL REPORT TO DAYSHIFT NURSE.
--- NOTE | 2019-12-20 07:14 | NUR ---
Notified Dr Diaz of elevated troponin this AM. Provider would like troponin checked now.
--- NOTE | 2019-12-20 07:46 | NUR ---
Assumed care of pt at 0700. Bedside report received from Jacoby KENNY. Pt A&O x 4. Weak voice. Answers questions. Follows commands. Verbalizes needs. Discussed goals for the day. Pt stated she would enjoy sitting up in a chair today. Plan to discuss PO intake with provider. Cough and gag present. Pt on AirVO with 30 LPM and 30% FiO2. SpO2 97%. Coarse breath sounds t/o when auscultated anteriorally. SR per monitor, rate 80s. BP stable. Hyperactive BT. Bed in lowest position. Call light in reach. Pt denies need at this time.
--- NOTE | 2019-12-20 08:03 | NUR ---
New troponin results given to Dr Oliva. No new orders at this time.
[2019-12-20 11:36] LABS: Base Excess Venous 15.5 mmol/L; Bicarbonate Venous 36.1 mmol/L (24.0-30.0); PCO2 Venous 69.4 mmHg (38-42); PO2 Venous 57.7 mmHg (38-42); pH Blood Venous 7.38 (7.34-7.37)
--- NOTE | 2019-12-20 11:55 | NUR ---
Pt has been on nasal cannula for several hours. Pt sitting up in chair. Up to chair with one person maximum assistance. Wearing 2.5 LPM NC. SpO2 97%. Dr Oliva aware of pt's flow rate at this time. Pt wears 3 LPM at baseline. Have not done bedside swallow due to pt's respiratory status, previously. Stable at this time, however pt is now drowsy. Will continue to reassess.
--- NOTE | 2019-12-20 14:10 | NUR ---
Bedside swallow screen performed while pt alert and sitting up in chair. Pt tolerated thin liquids well without choking or coughing. Pt drinking ensure right now with supervision from daughter. Pt sat up in chair for several hours today, currently back in bed. Pt is wearing 2.5 LPM NC.
--- NOTE | 2019-12-20 17:19 | NUR ---
SUMMARY Pt is A&O x 4. Gets out of bed with one person maximum assist. Answers questions. Follows commands. Verbalizes needs. Pleasant and cooperative with care. Pt is excited to watch her daughter get in the hospital chapel tomorrow. Plan is for pt advocate to take the patient to the chap for the ceremony at 1 pm. Pt has been on 2.5 LPM NC for majority of the day, which is slightly less than her baseline of 3 LPM NC. SpO2 90% or greater. Lungs coarse in all danielle. Pt has productive cough with moderate amounts of thick, yellow and brown sputum. Pt uses flutter valve, often reaching for it independently. Pt receiving chest physiotherapy per RT. Pt out of bed to chair for several hours today. No oxygen desaturation noted with activity. SR-ST per monitor dependent on pt anxiety. Pt also hypertensive when enaging in long, continuous conversation. Dr Oliva aware. No peripheral edema. 2+ pulses BUE and BLE. Pt tolerating thin liquids and full liquids well. Able to take Guaifenesin syrup this afternoon. No BM this shift. Pt still has botello catheter in place. This RN offered patient to have catheter removed, however pt stated she would prefer for it to be removed tomorrow. PICC line saline locked at this time. Will continue to closely monitor pt until care handoff and bedside report with oncoming RN.
--- NOTE | 2019-12-20 18:38 | NUR ---
Pt transferred to PCU 9. Telephone report given to Elisabeth KENNY.
--- NOTE | 2019-12-20 20:05 | NUR ---
CARE ASSUMPTION PT A&O X4. VSS. MONITOR SHOWING NSR, HR 90's. LUNG SOUNDS DIM W/ WHEEZE T/O. SPO2 > 90% ON 2.5L NC. PT W/ PRODUCTIVE COUGH, W/ PT REPORT OF THICK BROWN SPUTUM. WILL CONTINUE TO MONITOR & PROVIDE CARE.
[2019-12-21 04:30] LABS: BASOPHILS ABSOLUTE AUTO 0.02 K/mm3 (0.00-0.23); BASOPHILS PERCENT AUTO 0 % (0-2); EOSINOPHILS PERCENT AUTO 0 % (0-6); Hematocrit 41.6 % (33.0-51.0); Hemoglobin 12.9 g/dL (11.5-16.0); IMMATURE GRAN ABSOLUTE AUTO 0.04 K/mm3 (0.00-0.10); IMMATURE GRAN PERCENT AUTO 0 % (0-1); LYMPHOCYTES ABSOLUTE AUTO 0.94 K/mm3 (0.84-5.20); LYMPHOCYTES PERCENT AUTO 9 % (21-46); MONOCYTES ABSOLUTE AUTO 0.59 K/mm3 (0.16-1.47); MONOCYTES PERCENT AUTO 6 % (4-13); Mean Corpuscular HGB 30.8 pg (26.0-34.0); Mean Corpuscular Volume 99 fL (80-100); Mean Platelet Volume 9.9 fL (9.1-12.4); NEUTROPHILS ABSOLUTE AUTO 9.16 K/mm3 (1.96-9.15); NEUTROPHILS PERCENT AUTO 85 % (41-73); Platelet Count 212 K/mm3 (150-400); RDW Coefficient Variation 12.3 % (11.7-14.2); RDW Standard Deviation 44.7 fL (35.1-46.3); Red Blood Cell Count 4.19 M/mm3 (3.80-5.20); White Blood Cell Count 10.75 K/mm3 (4.00-11.30)
[2019-12-21 04:42] LABS: Anion Gap 0 mmol/L (6-16); Blood Urea Nitrogen 10 mg/dL (8-24); Bun/Creatinine Ratio 26.4 (12.0-20.0); CO2, Blood 41 mmol/L (21-32); Calcium, Blood 8.8 mg/dL (8.5-10.1); Chloride, Blood 97 mmol/L (98-108); Creatinine, Blood 0.38 mg/dL (0.40-1.00); Glomerular Filtration Rate >60 (60-); Glucose, Blood 91 mg/dL (70-99); Potassium, Blood 3.7 mmol/L (3.5-5.5); Sodium, Blood 138 mmol/L (136-145)
--- NOTE | 2019-12-21 06:05 | NUR ---
SHIFT SUMMARY PT CONTINUES TO BE A&O X4. PT CALM T/O SHIFT BUT REPORTING ANXIETY, REQUESTING ANXIETY MEDICINE. PT MEDICATED W/ PRN IV ATIVAN PER PT REQUEST/EMAR X2 THIS SHIFT. BP ELEVATED, OTHERWISE VSS. MONITOR SHOWS NSR, HR 80's-90's. SPO2 > 90% ON 2.5L NC W/ NO USE OF BIPAP OR AIRVO IN RM @ BEDSIDE THIS SHIFT. PT C/O "GENERALIZED" PAIN, BACK PAIN, & THROAT PAIN. PT MEDICATED FOR PAIN PER PT REQUEST/EMAR X2 THIS SHIFT. PT REPORTS THROAT DISCOMFORT POST INTUBATION/EXTUBATION IMPROVING W/ PT VOICE BECOMING STRONGER AND MORE CLEAR WELL. PT TOLERATING FULL LIQUID DIET W/ QUESTION OF WHEN SHE MAY HAVE SOLID FOOD AGAIN. DUTTA CATH PATENT & DRAINING. PT ANTICIPATING ATTENDING HER DAUGHTER's [place]DING IN THE [place] TODAY. WILL CONTINUE TO MONITOR & PROVIDE CARE.
--- NOTE | 2019-12-21 07:19 | NUR ---
ASSUMED PATIENT CARE. PATIENT RESTING COMFORTABLY IN BED, RECEIVING BREATHING TREATMENT FROM RT AT BEDSIDE. NO SIGNS OF ACUTE DISTRESS, WCTM.
--- NOTE | 2019-12-21 13:36 | NUR ---
Spiritual care visit conducted. Patient is wheeled down (by Patient Advocate Nannette Morin) to the hospital chapel where I performed patient's daughter's wedding. The wedding was originally scheduled for today but in [place]. Daughter, Uriel, out of love for her mom and wanting her mom to be able to attend changed her plans. Wharf Labourer Sigrid Arellano got all the approvals and stipulations so I could perform the ceremony in our chapel (all precautions were followed). Patient was tearful and very appreciative of the of the lengths our staff went to make the wedding happen here. Patient was also overjoyed by being able to witness the happiness on Uriel's face. I will continue to remain available to patient and family.
--- NOTE | 2019-12-21 17:54 | NUR ---
NO ACUTE EVENTS THIS SHIFT. PATIENT RECEIVED Q4 BREATHING TREATMENTS TODAY, PATIENT O2 LEVEL WILL DECREASE FROM LOW 90S TO HIGH 70S AT TIMES WITHOUT NOTICEABLE CHANGE INPATIENT CONDITION, PATIENT APPEARS ASYMPTOMATIC, O2 LEVEL INCREASES WITH DEEP BREATHING THROUGH NASAL CANNULA. PATIENT TRENDING HYPERTENSIVE, DR. BULLARD NOTIFIED AND PO CARDIZEM ORDERS GIVEN. SLIGHT IMPROVEMENT IN BP NOTED, FROM 170S/90S TO 160S/90S. PLAN IS TO TAPER IV SOLUMEDROL. PATIENT ADVANCED FROM FULL LIQUID TO MECH SOFT DIET, TOLERATED WELL.
[2019-12-22 04:31] LABS: Alanine Aminotransfer (ALT/SGP 44 U/L (12-78); Albumin, Blood 3.1 g/dL (3.4-5.0); Albumin/Globulin Ratio 0.8 (0.8-1.8); Alk Phos 64 U/L (50-136); Anion Gap 1 mmol/L (6-16); Aspartate Aminotrans (AST/SGOT 22 U/L (12-37); Bilirubin, Total 0.5 mg/dL (0.1-1.0); Blood Urea Nitrogen 13 mg/dL (8-24); Bun/Creatinine Ratio 26.9 (12.0-20.0); CO2, Blood 38 mmol/L (21-32); Chloride, Blood 97 mmol/L (98-108); Creatinine, Blood 0.48 mg/dL (0.40-1.00); Globulin, Blood 3.7 g/dL (2.2-4.0); Glomerular Filtration Rate >60 (60-); Glucose, Blood 107 mg/dL (70-99); Potassium, Blood 4.2 mmol/L (3.5-5.5); Sodium, Blood 136 mmol/L (136-145); Total Protein, Blood 6.8 g/dL (6.4-8.2)
--- NOTE | 2019-12-22 05:28 | NUR ---
SHIFT SUMMARY PT A&O X4. BP ELEVATED, OTHERWISE VSS. MONITOR SHOWS NSR, HR 70's-90's. SPO2 > 92% ON 2L NC WHICH PT REPORTS 2-2.5L NC BEING HOME BASE LINE. DUTTA CATH PATENT & DRAINING. PT C/O CHRONIC BACK PAIN, MEDICATED W/ PRN ACETAMMINOPHEN PER PT REQUEST/EMAR X2 THIS SHIFT. NO EVENTS OVER NIGHT. WILL CONTINUE TO MONITOR & PROVIDE CARE UNTIL REPORT OFF TO DAY SHIFT RN.
--- NOTE | 2019-12-22 07:39 | NUR ---
ASSUMED PATIENT CARE. PATIENT RESTING COMFORTABLY IN BED, NO SIGNS OF ACUTE DISTRESS, CONVERSING WITH NURSING STAFF. WCTM.
--- NOTE | 2019-12-22 11:21 | NUR ---
REPORT GIVEN TO NESTOR KENNY ON SURGICAL.
--- NOTE | 2019-12-22 12:03 | NUR ---
IN HOUSE TRANSFER: PATIENT WAS TRANSFERRED TO SURGICAL FROM PCU FLOOR AT THIS TIME. SHE IS ALERT AND ORIENTED X4. SHE DENIES SOB AT THIS TIME. SHE IS ON 2L OF OXYGEN AND IS NORMALLY ON 3LS AT HOME. SHE HAS HER ITEMS IN THE ROOM WITH HER. SHE IS CURRENTLY EATING WITH HER IN THE ROOM. SHE SEEMS PLEASANT AND NICE. WILL CONTINUE TO MONITOR THROUGHOUT SHIFT.
--- NOTE | 2019-12-22 17:25 | NUR ---
SHIFT SUMMARY: PATIENT HAS BEEN ALERT AND ORIENTATED X4 THROUGHOUT SHIFT. HER VITALS HAVE BEEN WITHIN NORMAL LIMITS. SHE EATS ADEQUATELY FOR EACH MEAL. SHE IS CURRENLY ON 2L OF OXYGEN. HER BASELINE IS 3L AT HOME. SHE WAS ABLE TO WORK WITH PT TODAY AND WAS ABLE TO WALK FOR A BIT BEFORE BECOMING OUT OF BREATH. SHE HAS HAD A HEADACHE BUT WAS MANAGED WITH TYLENOL. SHE ALSO HAS A PICC LINE IN HER LEFT ARM THAT HAS BEEN ABLE TO FLUSH WELL. WILL CONTINUE TO MONITOR PATIENT UNTIL ONCOMING NIGHTSHIFT NURSE COMES TO RECIEVE REPORT.
[2019-12-23 04:43] LABS: Anion Gap 4 mmol/L (6-16); Blood Urea Nitrogen 14 mg/dL (8-24); Bun/Creatinine Ratio 29.7 (12.0-20.0); CO2, Blood 35 mmol/L (21-32); Calcium, Blood 9.1 mg/dL (8.5-10.1); Chloride, Blood 97 mmol/L (98-108); Creatinine, Blood 0.47 mg/dL (0.40-1.00); Glomerular Filtration Rate >60 (60-); Glucose, Blood 112 mg/dL (70-99); Potassium, Blood 3.9 mmol/L (3.5-5.5); Sodium, Blood 136 mmol/L (136-145)
--- NOTE | 2019-12-23 06:08 | NUR ---
PATIENT WAKES EASILY WITH VERBAL STIMULI, STATES THAT SHE HAS NOT SLEPT THIS MUCH IS DAYS. PATIENT HAS HAD A HEADACHE THAT DECREASES IN INTENSITY WITH TYLENOL. HER LUNGS HAVE INSPIRITORY WHEEZES THROUGHOUT THE [place] WITH WEAK RESPIRATORY EFFORT. PATIENT DENIES SOB OR DYSPNEA. SHE UNDERSTANDS THAT A DISCHARGE TODAY MAY HAPPEN AND IS GOING TO CALL HER FRIEND THAT SHE WILL BE STAYING WITH. PATIENT IS HAPPY THAT SHE WILL BE GOING TO A PLACE THAT DOES NOT SMOKE AND IS CLEAN. CALL LIGHT IN REACH. NO ACUTE CHANGES.
[2019-12-23] MEDS ORDERED: ACET325 PO (09:20)
[2019-12-23] MEDS ORDERED: ASPI81CH PO (09:20)
[2019-12-23] MEDS ORDERED: DILT60ER PO (09:21)
[2019-12-23] MEDS ORDERED: PRED20 PO (09:25)
--- NOTE | 2019-12-23 09:48 | NUR ---
DISCHARGE NOTE: PATIENT HAS BEEN EDUCATED ON DISCHARGE INSTRUCTIONS. SHE HAS NO FURTHER QUESTIONS OR CONCERNS AT THIS TIME. SHE HAS BEEN INCREASING HER NUTRITIONAL INTAKE. SHE IS ALERT AND ORIENTED X4. SHE IS ON A NC ON 3L, BUT THIS IS HER BASELINE WHEN AT HOME. SHE HAS BEEN ABLE TO VOID AND PASS GAS. SHE IS EXCITED AND READY TO GO HOME. HER DAUGHTER WILL BE COMING IN WITH HER HOMY OXYGEN TANK AND CLOTHES TO WEAR HOME. HER ITEMS ARE PACKED AND CLOSE BY TO HER. SHE WILL BE GOING HOME WITH HER DAUGHTER. SHE WILL BE WHEELCHAIRED OUT. SHE IS A PLEASANT PATIENT TO HAVE.
== END 2019-12-23 11:07 | disposition home or self-care (01) | DRG 207 ==
LOC: ER 10:02 → ICUW 12:47 → PCU 12:47 → ICUW 12-15 15:28 → PCU 12-20 18:35 → SURS 12-22 12:02
PROVIDERS: Emergency Medicine; Internal Medicine; Internal Medicine Critical Care Medicine; Internal Medicine Pulmonary Disease; Nurse Practitioner Acute Care; ADMIT Internal Medicine
PROC: 0BH17EZ Insertion of Endotracheal Airway into Trachea, Via Natural or Artificial Opening (ICD-10-PCS; principal; 2019-12-16)
PROC: 5A1955Z Respiratory Ventilation, Greater than 96 Consecutive Hours (ICD-10-PCS; 2019-12-16)
DX: J96.21 Acute and chronic respiratory failure with hypoxia (principal); E87.1 Hypo-osmolality and hyponatremia; E87.2 Acidosis; J84.9 Interstitial pulmonary disease, unspecified; R64 Cachexia; Z68.1 Body mass index [BMI] 19.9 or less, adult; J96.22 Acute and chronic respiratory failure with hypercapnia; Z20.828 Contact with and (suspected) exposure to other viral communicable diseases; Z99.81 Dependence on supplemental oxygen; E86.0 Dehydration; E87.5 Hyperkalemia; F17.210 Nicotine dependence, cigarettes, uncomplicated; I95.9 Hypotension, unspecified; J43.9 Emphysema, unspecified; F41.9 Anxiety disorder, unspecified
CPT/HCPCS: 0202U; 31500; 31720; 36415; 36569; 36600; 51702; 71045; 80048; 80053; 80069; 81001; 82728; 82803; 83605; 83735; 83880; 84100; 84484; 85025; 85027; 85379; 86140; 87070; 87205; 93005; 93010; 93306; 94002; 94003; 94640; 94660; 94664; 94667; 94668; 94760; 94762; 96374; 97112; 97162; 97530; 98960; 99285-25; 99407; A9270; A9270-GY; C1751; C9113; J0456; J0696; J1650; J1940; J2060; J2405; J2704; J2920; J2930; J3010; J3475; J7030; J7040; J7050; J7060; J7512; U0002

== ENCOUNTER 2020-01-28 08:53 | Emergency (ER) | payer OTHER ==
[~2020-01-28] VITALS: Ht 160 cm; Wt 34.0 kg
[~2020-01-28 08:53] MED LIST changes: +ACET325 PO; +ASPI81CH PO; +DILT60ER PO; +PRED20 PO
[2020-01-28 09:29] LABS: BASOPHILS ABSOLUTE AUTO 0.07 K/mm3 (0.00-0.23); BASOPHILS PERCENT AUTO 1 % (0-2); EOSINOPHILS ABSOLUTE AUTO 0.02 K/mm3 (0.00-0.68); EOSINOPHILS PERCENT AUTO 0 % (0-6); Hematocrit 47.5 % (33.0-51.0); Hemoglobin 14.3 g/dL (11.5-16.0); IMMATURE GRAN ABSOLUTE AUTO 0.03 K/mm3 (0.00-0.10); IMMATURE GRAN PERCENT AUTO 0 % (0-1); LYMPHOCYTES ABSOLUTE AUTO 0.57 K/mm3 (0.84-5.20); LYMPHOCYTES PERCENT AUTO 5 % (21-46); MONOCYTES ABSOLUTE AUTO 0.52 K/mm3 (0.16-1.47); MONOCYTES PERCENT AUTO 4 % (4-13); Mean Corpuscular HGB 30.4 pg (26.0-34.0); Mean Corpuscular HGB Conc 30.1 g/dL (31.5-36.5); Mean Corpuscular Volume 101 fL (80-100); Mean Platelet Volume 10.3 fL (9.1-12.4); NEUTROPHILS ABSOLUTE AUTO 10.69 K/mm3 (1.96-9.15); NEUTROPHILS PERCENT AUTO 90 % (41-73); Platelet Count 223 K/mm3 (150-400); RDW Coefficient Variation 12.9 % (11.7-14.2); RDW Standard Deviation 48.8 fL (35.1-46.3); Red Blood Cell Count 4.71 M/mm3 (3.80-5.20)
[2020-01-28 09:47] LABS: Alanine Aminotransfer (ALT/SGP 24 U/L (12-78); Alk Phos 82 U/L (50-136); Anion Gap 4 mmol/L (6-16); Aspartate Aminotrans (AST/SGOT 17 U/L (12-37); Bilirubin, Total 0.6 mg/dL (0.1-1.0); Blood Urea Nitrogen 8 mg/dL (8-24); Bun/Creatinine Ratio 21.1 (12.0-20.0); CO2, Blood 38 mmol/L (21-32); Calcium, Blood 9.4 mg/dL (8.5-10.1); Chloride, Blood 89 mmol/L (98-108); Creatinine, Blood 0.38 mg/dL (0.40-1.00); Glomerular Filtration Rate >60 (60-); Glucose, Blood 91 mg/dL (70-99); Potassium, Blood 3.9 mmol/L (3.5-5.5); Sodium, Blood 131 mmol/L (136-145)
[2020-01-28] MEDS ORDERED: XARELTO20 MG PO (10:55)
[2020-01-28] MEDS ORDERED: AZIT250 PO (13:43)
[2020-01-28] MEDS ORDERED: Prednisone20 MG PO (13:43)
[2020-01-28] MEDS ORDERED: Cardizem CD 12120 MG PO (13:43)
== END 2020-01-28 14:48 | disposition home or self-care (01) ==
LOC: ER 08:53
PROVIDERS: Emergency Medicine
DX: R00.2 Palpitations (principal); J44.9 Chronic obstructive pulmonary disease, unspecified; R51.9 Headache, unspecified; F17.200 Nicotine dependence, unspecified, uncomplicated; Z79.82 Long term (current) use of aspirin; Z79.52 Long term (current) use of systemic steroids; Z79.899 Other long term (current) drug therapy; Z79.01 Long term (current) use of anticoagulants
CPT/HCPCS: 36415; 71046; 80053; 83880; 84484; 85025; 85379; 93005; 93010; 96365; 96375; 99285-25; J2930; J3475

== ENCOUNTER 2021-09-14 21:10 | Inpatient (IN) | payer OTHER ==
[~2021-09-14] VITALS: Ht 157.5 cm; Wt 36.3 kg
[~2021-09-14 21:10] MED LIST changes: +AZIT250 PO; +Cardizem CD 12120 MG PO; +Prednisone20 MG PO; +XARELTO20 MG PO
[2021-09-14 21:33] LABS: Hematocrit 39.5 % (33.0-51.0); Hemoglobin 12.4 g/dL (11.5-16.0); Mean Corpuscular HGB 30.2 pg (26.0-34.0); Mean Corpuscular HGB Conc 31.4 g/dL (31.5-36.5); Mean Corpuscular Volume 96 fL (80-100); Mean Platelet Volume 10.5 fL (9.1-12.4); Platelet Count 148 K/mm3 (150-400); RDW Coefficient Variation 12.7 % (11.7-14.2); RDW Standard Deviation 45.1 fL (35.1-46.3); White Blood Cell Count 16.96 K/mm3 (4.00-11.30)
[2021-09-14 21:50] LABS: Albumin, Blood 3.6 g/dL (3.4-5.0); Albumin/Globulin Ratio 0.9 (0.8-1.8); Bilirubin, Total 0.5 mg/dL (0.1-1.0); Bun/Creatinine Ratio 27.8 (12.0-20.0); Calcium, Blood 9.1 mg/dL (8.5-10.1); Creatinine, Blood 0.43 mg/dL (0.40-1.00); Globulin, Blood 4.2 g/dL (2.2-4.0); Total Protein, Blood 7.8 g/dL (6.4-8.2)
[2021-09-14 21:55] LABS: BAND PERCENT MAN 9 % (0-8); BASOPHILS PERCENT MAN 0 % (0-2); EOSINOPHILS PERCENT MAN 0 % (0-6); LYMPHOCYTES PERCENT MAN 3 % (21-46); MONOCYTES ABSOLUTE MAN 0.33 K/mm3 (0.16-1.47); MONOCYTES PERCENT MAN 2 % (4-13); NEUTROPHILS ABSOLUTE MAN 16.11 K/mm3 (1.96-9.15); SEG NEUTROPHILS PERCENT MAN 86 % (41-73); TOTAL CELLS COUNTED 100
[2021-09-15 01:02] LABS: Influenza A, PCR NEGATIVE (NEGATIVE); Influenza B, PCR NEGATIVE (NEGATIVE); Resp Syncytial Virus, PCR NEGATIVE (NEGATIVE); SARS-Cov-2 (COVID-19) PCR, MMC NEGATIVE (NEGATIVE)
[2021-09-15 01:40] LABS: Hematocrit 41.3 % (33.0-51.0); Mean Corpuscular HGB 30.2 pg (26.0-34.0); Mean Corpuscular HGB Conc 31.5 g/dL (31.5-36.5); Mean Corpuscular Volume 96 fL (80-100); Mean Platelet Volume 10.5 fL (9.1-12.4); Platelet Count 172 K/mm3 (150-400); RDW Coefficient Variation 12.7 % (11.7-14.2); RDW Standard Deviation 44.9 fL (35.1-46.3)
--- NOTE | 2021-09-15 01:50 | NUR ---
CARE ASSUMPTION: RECEIVED REPORT FROM PATRICE ED RN. PATIENT MOVED TO PCU 07 WITH DAUGHTER AT BEDSIDE. ADMISSION HX COMPLETE. VSS ON 6L NC. PATIENT AMBULATED TO BSC. ORIENTED TO UNIT. CONSENTS COLLECTED. CHILD SPECIALIST MARIO MORNING LABS. RT HAS BEEN BY TO ASSESS PATIENT. BED LOW WITH CALL LIGHT IN REACH.
[2021-09-15 01:59] LABS: Bun/Creatinine Ratio 30.2 (12.0-20.0); Calcium, Blood 9.3 mg/dL (8.5-10.1); Creatinine, Blood 0.43 mg/dL (0.40-1.00)
[2021-09-15 02:06] LABS: BAND PERCENT MAN 14 % (0-8); BASOPHILS PERCENT MAN 0 % (0-2); EOSINOPHILS ABSOLUTE MAN 0.15 K/mm3 (0.00-0.68); EOSINOPHILS PERCENT MAN 1 % (0-6); LYMPHOCYTES ABSOLUTE MAN 0.15 K/mm3 (0.84-5.20); LYMPHOCYTES PERCENT MAN 1 % (21-46); MONOCYTES PERCENT MAN 2 % (4-13); NEUTROPHILS ABSOLUTE MAN 14.49 K/mm3 (1.96-9.15); SEG NEUTROPHILS PERCENT MAN 82 % (41-73); TOTAL CELLS COUNTED 100
--- NOTE | 2021-09-15 08:00 | NUR ---
NURSING PCU DAYSHIFT: Assumed care of pt at approx 0700. A/O, pleasant, cooperative w/care. Denies any pain/discomfort at rest. Able to ambulate/reposition independently and w/o difficulty, mild general weakness. Skin is fragile, no breakdown noted. Tele in place, NSR/ST w/HR 95-105, no c/o CP/pressure, SBP 168 prior to a.m. meds. L/S with I/E wheeze in mid/upper lobes, bases diminished/tight, respirations shallow, dyspnea w/minimal exertion, O2 sat mid 90's at rest while on 3L NC though requires 4-5L w/exertion or during recovery, occ cough producing thick sputum though pt swallows specimen. Abd SNT, BT+, voiding dark/malodorous urine w/o difficulty. PIV x1, s/l. No s/s of acute distress at this time. Pt denies any current needs or questions regarding plan of care. Call light in reach and pt is able to use w/o difficulty. Awaiting rounding from PMD, will discuss possible status change to medical floor. Cont to monitor for any changes.
--- NOTE | 2021-09-15 17:32 | NUR ---
NURSING PCU DAYSHIFT SUMMARY: No significant changes noted t/o the shift. PMD at beside this a.m., new d/o received. RT administered breathing tx's as ordered, respiratory status improving, educated on importance of deep breathing exercises. Pt changed to medical status w/o tele and has verbalized anticipation of discharge tomorrow. S/O currently at bedside, plan of care discussed and questions answered. No s/s of acute distress at this time, cont to monitor until rpt is given to NOC RN.
--- NOTE | 2021-09-15 22:49 | NUR ---
CARE ASSUMPTION: RECEIVED REPORT FROM ALEXIS MERCER RN. PATIENT IN BED WITH FOOD FROM HOME ON TRAY. BREATHING IS UNLABORED, PATIENT PRACTICING DEEP BREATHING. INDEPENDENT IN ROOM. O2 SET TO 4L - HOME DOSE IS 3L - AND SATS >92%. BED LOW WITH CALL LIGHT IN PLACE.
--- NOTE | 2021-09-16 06:30 | NUR ---
SHIFT SUMMARY: PATIENT MAINTAINED O2 SATS >94% 3-4L, SYSTOLIC MILDLY HYPERTENSIVE, AFEBRILE. TITRATED O2 DOWN TO HOME DOSE 3L AND SATS CURRENTLY 95-96% - PATIENT STATES USUAL SPO2 IS 92-94%. PATIENT INDEPENDENT IN ROOM, MAKES NEEDS KNOWN, DOES NOT USE THE CALL LIGHT VERY OFTEN - FREQUENT ROUNDING. PATIENT SLEPT MOST OF THE NIGHT. MEDICATED PER EMAR. IV IS LEAKING SOME, WITH PLAN TO D/C TODAY TRYING TO MAINTAIN CURRENT IV SITE. CALL LIGHT IN REACH. WILL CONTINUE TO MONITOR AND REPORT TO ONCOMING RN.
--- NOTE | 2021-09-16 07:19 | NUR ---
ASSUMED CARE: PT ON 3L AT THIS TIME. RESTING IN BED BUT TALKING TO STAFF DURING BEDSIDE REPORT. DENIES NEED OR CONCERNS AT THIS TIME.
[2021-09-16] MEDS ORDERED: AZIT250 PO (11:08)
[2021-09-16] MEDS ORDERED: PRED20 PO (11:10)
--- NOTE | 2021-09-16 12:15 | NUR ---
PT'S IV REMOVED WNL. DISCUSSED DC ORDERS WITH PT WITH INSTRUCTIONS ON COMPLETING ABX AND STEROIDS. DENIED FURTHER QUESTIONS OR CONCERNS. ESCORTED OUT VIA WHEEL CHAIR BY STAFF
== END 2021-09-16 12:03 | disposition home or self-care (01) | DRG 189 ==
LOC: ER 21:10 → ERHOLD 22:27 → PCU 09-15 00:43
PROVIDERS: Emergency Medicine; Physician Assistant; ADMIT Internal Medicine
DX: J96.21 Acute and chronic respiratory failure with hypoxia (principal); J44.1 Chronic obstructive pulmonary disease with (acute) exacerbation; E87.1 Hypo-osmolality and hyponatremia; R65.10 Systemic inflammatory response syndrome (SIRS) of non-infectious origin without acute organ dysfunction; Z20.822 Contact with and (suspected) exposure to COVID-19; J96.22 Acute and chronic respiratory failure with hypercapnia; F17.210 Nicotine dependence, cigarettes, uncomplicated; F41.9 Anxiety disorder, unspecified; Z71.6 Tobacco abuse counseling; Z79.01 Long term (current) use of anticoagulants; Z79.51 Long term (current) use of inhaled steroids; Z79.899 Other long term (current) drug therapy
CPT/HCPCS: 0241U; 71045; 80048; 80053; 84484; 85025; 93005; 93010; 94640; 94664; 94760; 94762; 96374; 99285-25; A9270; J1650; J1956; J2930; J7040

== ENCOUNTER → 2021-11-25 | Outpatient (CLI) | payer OTHER ==
[2021-11-26 15:10] LABS: HPV 16 Negative (Negative); HPV 18 Negative (Negative); HPV OTHER HR TYPES Negative (Negative)
== END | disposition home or self-care (01) ==
LOC: LAB SHORT 08:30
PROVIDERS: Nurse Practitioner Family
DX: Z01.419 Encounter for gynecological examination (general) (routine) without abnormal findings (principal)
CPT/HCPCS: 87624; G0123

== ENCOUNTER 2022-02-12 21:58 | Emergency (ER) | payer OTHER ==
[~2022-02-12] VITALS: Ht 157.5 cm; Wt 38.6 kg
[2022-02-12] MEDS ORDERED: Prednisone20 MG PO (23:16)
[2022-02-12] MEDS ORDERED: AMOCLA875 PO (23:16)
== END 2022-02-13 00:24 | disposition home or self-care (01) ==
LOC: ER 21:58
DX: J44.1 Chronic obstructive pulmonary disease with (acute) exacerbation (principal); F17.200 Nicotine dependence, unspecified, uncomplicated; Z79.899 Other long term (current) drug therapy; Z79.01 Long term (current) use of anticoagulants
CPT/HCPCS: 71045; 93005; 93010; 94640; 94664; A9270; J7512

== ENCOUNTER 2022-03-31 07:59 | Emergency (ER) | payer OTHER ==
[~2022-03-31] VITALS: Ht 157.5 cm; Wt 38.1 kg
[~2022-03-31 07:59] MED LIST changes: +AMOCLA875 PO
[2022-03-31 08:18] LABS: BASOPHILS ABSOLUTE AUTO 0.05 K/mm3 (0.00-0.23); BASOPHILS PERCENT AUTO 1 % (0-2); EOSINOPHILS ABSOLUTE AUTO 0.02 K/mm3 (0.00-0.68); EOSINOPHILS PERCENT AUTO 0 % (0-6); Hematocrit 39.9 % (33.0-51.0); Hemoglobin 12.3 g/dL (11.5-16.0); IMMATURE GRAN ABSOLUTE AUTO 0.03 K/mm3 (0.00-0.10); IMMATURE GRAN PERCENT AUTO 0 % (0-1); LYMPHOCYTES ABSOLUTE AUTO 0.65 K/mm3 (0.84-5.20); LYMPHOCYTES PERCENT AUTO 7 % (21-46); MONOCYTES PERCENT AUTO 5 % (4-13); Mean Corpuscular HGB 29.7 pg (26.0-34.0); Mean Corpuscular HGB Conc 30.8 g/dL (31.5-36.5); Mean Corpuscular Volume 96 fL (80-100); Mean Platelet Volume 10.3 fL (9.1-12.4); NEUTROPHILS ABSOLUTE AUTO 8.33 K/mm3 (1.96-9.15); NEUTROPHILS PERCENT AUTO 87 % (41-73); Platelet Count 211 K/mm3 (150-400); RDW Coefficient Variation 12.9 % (11.7-14.2); RDW Standard Deviation 45.8 fL (35.1-46.3); Red Blood Cell Count 4.14 M/mm3 (3.80-5.20); White Blood Cell Count 9.58 K/mm3 (4.00-11.30)
[2022-03-31 08:44] LABS: Bun/Creatinine Ratio 21.6 (12.0-20.0); Calcium, Blood 8.6 mg/dL (8.5-10.1); Creatinine, Blood 0.46 mg/dL (0.40-1.00)
[2022-03-31 10:02] LABS: Influenza A, PCR NEGATIVE (NEGATIVE); Influenza B, PCR NEGATIVE (NEGATIVE); Resp Syncytial Virus, PCR NEGATIVE (NEGATIVE); SARS-Cov-2 (COVID-19) PCR, MMC NEGATIVE (NEGATIVE)
[2022-03-31] MEDS ORDERED: PRED20 PO (10:45)
[2022-03-31] MEDS ORDERED: ALBU90OI INH (10:45)
[2022-03-31] MEDS ORDERED: Flonase 0.05% N16 GM (10:45)
== END 2022-03-31 11:52 | disposition home or self-care (01) ==
LOC: ER 07:59
PROVIDERS: Emergency Medicine
DX: J44.1 Chronic obstructive pulmonary disease with (acute) exacerbation (principal); Z20.822 Contact with and (suspected) exposure to COVID-19; Z87.891 Personal history of nicotine dependence; Z79.899 Other long term (current) drug therapy
CPT/HCPCS: 0241U; 71045; 80048; 85025; 93005; 93010; 94644; 94664; J2930

== ENCOUNTER 2022-04-02 12:49 | Inpatient (IN) | payer OTHER ==
[~2022-04-02] VITALS: Ht 167.6 cm; Wt 33.8 kg
[~2022-04-02 12:49] MED LIST changes: +ALBU90OI INH; +Flonase 0.05% N16 GM
[2022-04-02 13:50] LABS: BASOPHILS ABSOLUTE AUTO 0.02 K/mm3 (0.00-0.23); BASOPHILS PERCENT AUTO 0 % (0-2); EOSINOPHILS ABSOLUTE AUTO 0.01 K/mm3 (0.00-0.68); EOSINOPHILS PERCENT AUTO 0 % (0-6); Hematocrit 41.6 % (33.0-51.0); Hemoglobin 12.8 g/dL (11.5-16.0); IMMATURE GRAN ABSOLUTE AUTO 0.07 K/mm3 (0.00-0.10); IMMATURE GRAN PERCENT AUTO 1 % (0-1); LYMPHOCYTES ABSOLUTE AUTO 0.68 K/mm3 (0.84-5.20); LYMPHOCYTES PERCENT AUTO 5 % (21-46); MONOCYTES ABSOLUTE AUTO 0.91 K/mm3 (0.16-1.47); MONOCYTES PERCENT AUTO 6 % (4-13); Mean Corpuscular HGB 30.5 pg (26.0-34.0); Mean Corpuscular HGB Conc 30.8 g/dL (31.5-36.5); Mean Corpuscular Volume 99 fL (80-100); NEUTROPHILS ABSOLUTE AUTO 12.76 K/mm3 (1.96-9.15); NEUTROPHILS PERCENT AUTO 88 % (41-73); Platelet Count 273 K/mm3 (150-400); RDW Coefficient Variation 12.9 % (11.7-14.2); White Blood Cell Count 14.45 K/mm3 (4.00-11.30)
[2022-04-02 14:48] LABS: Alanine Aminotransfer (ALT/SGP 30 U/L (12-78); Albumin, Blood 3.7 g/dL (3.4-5.0); Albumin/Globulin Ratio 0.9 (0.8-1.8); Alk Phos 75 U/L (50-136); Anion Gap Unable to Calculate mmol/L (6-16); Aspartate Aminotrans (AST/SGOT 25 U/L (12-37); Bilirubin, Total 0.3 mg/dL (0.1-1.0); Blood Urea Nitrogen 16 mg/dL (8-24); Bun/Creatinine Ratio 44.9 (12.0-20.0); CO2, Blood >45 mmol/L (21-32); Calcium, Blood 8.8 mg/dL (8.5-10.1); Chloride, Blood 85 mmol/L (98-108); Creatinine, Blood 0.36 mg/dL (0.40-1.00); Globulin, Blood 4.3 g/dL (2.2-4.0); Glomerular Filtration Rate 117 (60-); Glucose, Blood 98 mg/dL (70-99); Potassium, Blood 4.1 mmol/L (3.5-5.5); Sodium, Blood 129 mmol/L (136-145)
[2022-04-02 17:27] LABS: pH Blood Venous 7.25 (7.34-7.37)
[2022-04-02 17:28] LABS: Base Excess Venous 19.6 mmol/L; Bicarbonate Venous 38.7 mmol/L (24.0-30.0); PCO2 Venous > 104 mmHg (38-42)
[2022-04-02 17:51] LABS: Ethanol (Alcohol), Blood, Med <3 mg/dL
[2022-04-02 18:21] LABS: Source, Urine Straight Cath
[2022-04-02 18:35] LABS: Appearance, Urine Clear (Clear); Bilirubin, Urine Neg (Neg); Blood, Urine 2+ (Neg); Color, Urine Yellow (P-Yellow); Glucose Qualitative, Urine Neg (Neg); Ketones, Urine Neg (Neg); Leukocyte Esterase, Urine Neg (Neg); Nitrite, Urine Neg (Neg); Protein, Urine 3+ (Neg); Urobilinogen, Urine NORM (Normal); pH, Urine 6.5 (5.0-8.0)
[2022-04-02 18:40] LABS: PO2 Arterial 102 mmHg (80-100)
[2022-04-02 18:41] LABS: PCO2 Arterial > 105 mmHg (35-45)
[2022-04-02 18:48] LABS: Bacteria Few /hpf; Squamous Epithelial Cells Few /hpf (Few); White Blood Cells, Urine 0-2 /hpf (0-5)
[2022-04-02 18:51] LABS: Granular Casts 0-2 /lpf (0); Hyaline Casts 0-2 /lpf (0-2)
[2022-04-02 18:54] LABS: Influenza A, PCR NEGATIVE (NEGATIVE); Influenza B, PCR NEGATIVE (NEGATIVE); Resp Syncytial Virus, PCR NEGATIVE (NEGATIVE); SARS-Cov-2 (COVID-19) PCR, MMC NEGATIVE (NEGATIVE)
[2022-04-02 18:54] LABS: U Amphetamine Screen Not Detected; U Barbituate Screen Not Detected; U Benzodiazapine Screen Not Detected; U Buprenorphine Screen Not Detected; U Cannabinoids Screen Not Detected; U Cocaine Screen Not Detected; U Methadone Screen Not Detected; U Methamphetamine Screen Not Detected; U Opiates Screen Not Detected; U Oxycodone Screen Not Detected; U Phencyclidine Screen Not Detected; U Propoxyphene Screen Not Detected
[2022-04-02 20:27] LABS: PO2 Arterial 91.3 mmHg (80-100)
[2022-04-02 20:28] LABS: pH Blood Arterial 7.25 (7.35-7.45)
[2022-04-02 20:29] LABS: PCO2 Arterial > 105 mmHg (35-45)
[2022-04-02 21:03] LABS: Bicarbonate Venous 37.4 mmol/L (24.0-30.0); PCO2 Venous 100 mmHg (38-42); PO2 Venous 185 mmHg (38-42)
[2022-04-02 21:04] LABS: pH Blood Venous 7.26 (7.34-7.37)
--- NOTE | 2022-04-02 22:00 | NUR ---
ASSUMED CARE PATIENT ARRIVED TO ICU FROM ER @ 2200 INTUBATED WITH NO SEDATION. PATIENT IS LYING IN BED WITHOUT MOVEMENT AND EYES SLIGHTLY OPEN. NS BOLUS INF AND AZITHROMYCIN HANGING ON SB. VENT SETTINGS AC/VC 20/325/5/35% WITH SPO2 HIGH 90'S-100%, RR 20. OGT IN PLACE AND CLAMPED, AWAITING NEW IMAGING TO CONFIRM PLACEMENT POST ER STAFF INSERTING 2CM DEEPER. DUTTA PATIENT AND DRAINING YELLOW CLEAR URINE TO GRAVITY. FAMILY WAITING IN ICU WAITING AREA. REPORT COMPLETED WITH BIRD Lord RN.
[2022-04-03 01:19] LABS: Base Excess Venous 14.1 mmol/L; Bicarbonate Venous 35.9 mmol/L (24.0-30.0); PCO2 Venous 58.4 mmHg (38-42); pH Blood Venous 7.43 (7.34-7.37)
[2022-04-03 05:29] LABS: Base Excess Venous 13.9 mmol/L; Bicarbonate Venous 36.5 mmol/L (24.0-30.0); PCO2 Venous 42.3 mmHg (38-42)
[2022-04-03 05:31] LABS: pH Blood Venous 7.54 (7.34-7.37)
[2022-04-03 05:32] LABS: BASOPHILS ABSOLUTE AUTO 0.01 K/mm3 (0.00-0.23); BASOPHILS PERCENT AUTO 0 % (0-2); EOSINOPHILS PERCENT AUTO 0 % (0-6); Hemoglobin 11.7 g/dL (11.5-16.0); IMMATURE GRAN ABSOLUTE AUTO 0.04 K/mm3 (0.00-0.10); IMMATURE GRAN PERCENT AUTO 0 % (0-1); LYMPHOCYTES ABSOLUTE AUTO 0.34 K/mm3 (0.84-5.20); LYMPHOCYTES PERCENT AUTO 3 % (21-46); MONOCYTES PERCENT AUTO 4 % (4-13); Mean Corpuscular HGB 30.5 pg (26.0-34.0); Mean Corpuscular HGB Conc 31.6 g/dL (31.5-36.5); Mean Corpuscular Volume 97 fL (80-100); Mean Platelet Volume 10.6 fL (9.1-12.4); NEUTROPHILS ABSOLUTE AUTO 9.85 K/mm3 (1.96-9.15); NEUTROPHILS PERCENT AUTO 93 % (41-73); Platelet Count 242 K/mm3 (150-400); RDW Coefficient Variation 13.2 % (11.7-14.2); RDW Standard Deviation 47.1 fL (35.1-46.3); Red Blood Cell Count 3.83 M/mm3 (3.80-5.20); White Blood Cell Count 10.64 K/mm3 (4.00-11.30)
[2022-04-03 06:05] LABS: Albumin, Blood 3.3 g/dL (3.4-5.0); Albumin/Globulin Ratio 0.9 (0.8-1.8); Bilirubin, Total 0.4 mg/dL (0.1-1.0); Bun/Creatinine Ratio 29.1 (12.0-20.0); Calcium, Blood 8.8 mg/dL (8.5-10.1); Creatinine, Blood 1.03 mg/dL (0.40-1.00); Globulin, Blood 3.5 g/dL (2.2-4.0); Potassium, Blood 5.1 mmol/L (3.5-5.5); Total Protein, Blood 6.8 g/dL (6.4-8.2)
--- NOTE | 2022-04-03 06:26 | NUR ---
SHIFT SUMMARY PATIENT REMAINS INTUBATED-RATE DECREASED FROM 20 TO 15 FOR CRITICAL PH 7.54. PROPOFOL AND LEVOPHED STARTED DURING SHIFT. PROPOFOL @ 25MCG/KG/MIN, LEVOPHED @ 4MCG/MIN, NS TKO INF. VENT SETTINGS AC/VC 15/350/5/35%. CT PE STUDY COMPLETED AFTER ARRIVAL TO ICU. FAMILY ASSISTED WITH ADMISSION INFORMATION. DUTTA PATENT AND DRAINING TO GRAVITY. NO BM THIS SHIFT. NO OTHER CHANGES THIS SHFIT.
--- NOTE | 2022-04-03 08:19 | NUR ---
Assumed care of pt at 0700. Report received from Sada Lo RN. Pt sedated with propofol at 25 mcg/kg/min. RASS -4, but sits up and makes deliberate reach for ETT with repositioning. Levophed initially 4 mcg/min, decreased to 2 mcg/min for MAP in 90s. Infusing through peripheral IV in left forearm. Site looks stable on assessment and flushes/draws back blood without difficulty. Variable readings through temporal thermometer. Esophageal probe inserted. Pt febrile. Blankets removed. Cool washcloth applied to forehead and fan placed at bedside.
[2022-04-03 09:25] LABS: Base Excess Venous 13.8 mmol/L; Bicarbonate Venous 35.9 mmol/L (24.0-30.0); PCO2 Venous 50.7 mmHg (38-42); pH Blood Venous 7.48 (7.34-7.37)
--- NOTE | 2022-04-03 13:31 | NUR ---
Spoke with marine steamfitter Stacey earlier this AM and discussed case. Pt and family may benefit from advanced care planning. Pt resting in bed with her eyes closed and is intubated. Moisés at bedside along with family friend. Moisés appears mildy tense and anxious. Offered brief supportive visit to establish rapport. Palliative Care will remain available.
--- NOTE | 2022-04-03 17:46 | NUR ---
SUMMARY Neuro: Sedated with propofol at 25 mcg/kg/min. Variable LOC, either responsive to verbal or to pressure. Startles awake with repositioning or oral care, but is easily calmed with reasurrance and therapeutic communication and is able to follow commands. Opens mouth for oral care, helps with repositioning, etc. Musc/ADLs: Equal strength and ROM to all extremities. Repositioned Q2H to maintain skin integrity. Oral care Q4H. Resp: Vent settings ACVC 15/325/5/35%. SpO2 90% or greater. Small amount of thick green secretions suctioned from ETT. Compliant with ventilator Cardiac: ST per monitor. BP stable. Levophed DC'd this AM. GI: OG tube clamped. No BM this shift. : 100 mL clear yellow urine output. Dr Oliva notified of poor urine output this afternoon. Ordered 1000 mL LR bolus. Skin: Unchanged from initial assessment. Psych: Family in room all day. Updated daughter, Uriel.
--- NOTE | 2022-04-03 19:25 | NUR ---
ASSUMED CARE PATIENT IS LYING IN BED INTUBATED AND SEDATED. VENT SETTINGS AC/VC 15/350/5/35% WITH SPO2 MID 90'S AND RR 15. PROPOFOL @ 25MCG/KG/MIN AND NS TKO INF. DUTTA PATENT AND DRAINING YELLOW CLEAR URINE TO GRAVITY. NO FAMILY OR VISITORS AT BEDSIDE. DOES NOT OPEN EYES WITH VERBAL STIMULI. REPORT RECEIVED FROM ZOYA BLISS.
[2022-04-04 03:44] LABS: Hemoglobin 10.9 g/dL (11.5-16.0); Mean Corpuscular HGB 30.3 pg (26.0-34.0); Mean Platelet Volume 10.5 fL (9.1-12.4); Platelet Count 169 K/mm3 (150-400); RDW Coefficient Variation 13.7 % (11.7-14.2); RDW Standard Deviation 45.9 fL (35.1-46.3); White Blood Cell Count 9.04 K/mm3 (4.00-11.30)
[2022-04-04 03:51] LABS: Mean Corpuscular Volume 92 fL (80-100)
[2022-04-04 04:03] LABS: Bun/Creatinine Ratio 38.5 (12.0-20.0); Calcium, Blood 8.6 mg/dL (8.5-10.1); Creatinine, Blood 0.96 mg/dL (0.40-1.00); Potassium, Blood 4.4 mmol/L (3.5-5.5)
--- NOTE | 2022-04-04 05:31 | NUR ---
SHIFT SUMMARY NO CHANGES DURING SHIFT. PATIENT REMAINS CALM AND COOPERATIVE WHILE ON 25MCG/KG/MIN-BEGINNING TO TITRATE DOWN THIS AM IN PREP FOR WEAN. LR STARTED @ 200ML/HR X 1 BAG FOR LOW URINE OUTPUT. MEDICATED W/ FENTANYL 50MCG IV X 1 FOR PAIN AT BEGINNING OF SHIFT-DENIED PAIN FOR THE REST OF SHIFT. NO BM THIS SHIFT.
--- NOTE | 2022-04-04 08:33 | NUR ---
Provider Visit Dr. Bob in to see patient. Waiting for Dr. Oliva before starting morning wean and possible extubation. Provider made aware of pt being hypertensive. Provider to be called if patient continues to have SBP of 170-180's.
--- NOTE | 2022-04-04 08:44 | NUR ---
Care Assumed 0700 Intubated and sedated. Propofol GTT 15 mcg/kg/min. AC/VC 15/350/5/30%. LS clear/dim. Cough present. Pt awake to verbal stumli. Following directions, able to use pen to write on paper to make needs known, assists with turns. Moves all extrems. Denies pain and nausea. BT active. Wilhelm in place with 150 ml of clear/yellow urine in bag. SWB in place. Hypertensive at times, provider made aware. SIT.
--- NOTE | 2022-04-04 11:03 | NUR ---
SPONT Per Dr. Oliva, pt changed from AC/VC to SPONT. Vent settings: SPONT 10/5, FIO2 30%. Pt tolerating well. RR 15 TIdal volume 300-400. SPO2 90%. Hypertensive, SBP 170's. Will let provider know of increased BP. Propofol GTT SB.
--- NOTE | 2022-04-04 12:02 | NUR ---
Vent Changes Spont 5/5, FIO2 30% Pt tolerating settings. tidal volumes 400's. Family at bedside, daughter and boyfriend.
--- NOTE | 2022-04-04 13:50 | NUR ---
Spoke with Primary RN Arley and discussed case. Pt doing better and extubated. Pt resting in bed with her eyes closed upon arrival. Pt responds to gentle verbal stimuli. Pt reports feeling better and is tired. Brief supportive visit and reviewed plan of care. Ended visit to allow Pt to rest. Palliative Care will remain available
--- NOTE | 2022-04-04 14:00 | NUR ---
CP Patient complains of CP (08/04). Resolved with patient laying back in bed. Rhythm changed note, no longer NSR changed to irrgular sinus. Will make provider aware.
--- NOTE | 2022-04-04 15:15 | NUR ---
Rhythm change Pt changed from NSR to irregular sinus. Dr. Bob called and patients home medication restarted (diltiazem). Given IV now and PO to be started once patient can tolerate PO. After IV dose of diltiazem patient converted to NSR.
--- NOTE | 2022-04-04 17:46 | NUR ---
Shift Summary A/O X 4. Able to state correct location, event, and communicating with family. Calm/coopertive. On 3 L via NC to keep SPO2 > 90%. LS wheezing T/O and crackles on left side. Pt coughing and deep breathing. BT active, denies N/V. Denies CP. NSR to irregular sinus. HR 100's. BP stable. Having lower back and throat pain. Lower back pain is chronic per pt. Treated per emar. Heat pad offered. Pt sleeping or visiting with family since extubation. Wilhelm in place with yellow/clear output. Pt anxious during extubation but tolerated well. Will report to nightshift.
--- NOTE | 2022-04-04 19:15 | NUR ---
ASSUMED CARE OF PT @1900 FROM CHATO KENNY. PT IS SLEEPING. ON 3L O2 VIA NC WHICH IS HER BASELINE. CONTINUOUS CARDIAC MONITORING. PT IS IN IRREGULAR SINUS TACH. MEDICATED PER EMAR. HR 110-120'S, SBP 120'S. MULTIPLE IV ACCESS. ALL PATENT W/SALINE LOCK. DUTTA CATH PATENT AND DRAINING TO GRAVITY.
--- NOTE | 2022-04-04 20:00 | NUR ---
UPDATE. DR GANT RE: PT PAIN AND IRREGULAR HR. OK'S FENTANYL 12.5 Q2HRS FOR PAIN. DILTIAZEM 20MG IV IF SUSTAINED IRREGULAR HR ABOVE 120.
--- NOTE | 2022-04-05 02:00 | NUR ---
RHYTHM CHANGE. PT CONVERTED TO NSR. HR 90'S.
[2022-04-05 03:54] LABS: Hematocrit 34.3 % (33.0-51.0); Mean Corpuscular HGB 30.3 pg (26.0-34.0); Mean Corpuscular HGB Conc 32.1 g/dL (31.5-36.5); Mean Corpuscular Volume 95 fL (80-100); Mean Platelet Volume 10.3 fL (9.1-12.4); Platelet Count 182 K/mm3 (150-400); RDW Coefficient Variation 13.9 % (11.7-14.2); RDW Standard Deviation 48.7 fL (35.1-46.3); Red Blood Cell Count 3.63 M/mm3 (3.80-5.20); White Blood Cell Count 7.38 K/mm3 (4.00-11.30)
[2022-04-05 05:52] LABS: Bun/Creatinine Ratio 34.1 (12.0-20.0); Calcium, Blood 8.3 mg/dL (8.5-10.1); Creatinine, Blood 0.56 mg/dL (0.40-1.00); Potassium, Blood 4.3 mmol/L (3.5-5.5)
--- NOTE | 2022-04-05 06:02 | NUR ---
SUMMARY NEURO/PSYCH/MOBILITY: PT IS A&O X4. PLEASANT AND COOPERATIVE W/CARE. ABLE TO REPOSITION SELF IN BED. GENERALIZED WEAKNESS AND DECONDITIONING. PT HAS CHRONIC BACK PAIN, MEDICATING W/PRN FENTANYL. AFEBRILE. PERRL. RESP: PT ON 3L O2 VIA NC. SPO2 >94%, RR <20. CARDIAC: PT IN IRREGULAR ST 100-110 UNTIL 0200 WHEN SHE CONVERTED TO NSR FOR REMAINDER OF SHIFT. BP SLIGHTLY ELEVATED BUT STABLE. NO CHEST PAIN OR SOB. GI: PT DENIES NAUSEA OR ABDOMINAL PAIN. PERFORMED BEDSIDE SWALLOW EVAL THIS AM. PT PASSED AND STATES SHE IS HUNGRY. THROAT IS PAINFUL WHEN SWALLOWING. NO BM THIS SHIFT. : DUTTA CATH PATENT AND DRAINING TO GRAVITY. SKIN: ASSESSMENT REMAINS UNCHANGED.
--- NOTE | 2022-04-05 10:49 | NUR ---
PT ASKED FOR A "PICKLE" VERIFIED WITH RT FRANK. PT HAS ONE AT HOME AND USES IT TO HELP WITH HER COUGH. SHE WAS ABLE TO EAT THIS AM, NOT MUCH BUT ABLE TO EAT. SHE HAD A COFFEE BROUGHT IN BY HER FRIEND. HER DUTTA CATHETER WAS REMOVED. HER IV FLUIDS THAT WERE TKO HAVE BEEN PLACED ON SB. HER DAUGHTER IS CURRENTLY VISITING WITH HER. SHE WAS MEDICATED EARLY ON FOR BACK PAIN, ONLY HAD FENTANYL ORDERED AT THE TIME, ORDERS FOR TYLENOL AND IBUPROFEN. SHE IS ABLE TO BE MEDICAL STATUS WITH NO TELEMETRY. PT SATISFIED WITH THIS.
--- NOTE | 2022-04-05 12:59 | NUR ---
Spiritual care visit conducted. Patient is sitting on the EOB and alert. Her dtr, Uriel is bedside. They tell me about patient's medical condition and about the good things that are happening in their family and patient's plans moving forward. They also discuss the struggles and ask for prayer. I provide therapeutic listening, and calming presence and prayer. Patient and Uriel respond well and show signs of increased peace. I will continue to remain available to patient and family.
--- NOTE | 2022-04-05 15:34 | NUR ---
RENATO HAS BEEN UP AND INDEPENDENT IN HER ROOM, CAME BY. NO COMPLAINTS FROM THE PATIENT. TOLERATING HER DIET. VOIDING WITHOUT INCIDENT.
--- NOTE | 2022-04-05 17:49 | NUR ---
RENATO HAS DONE GREAT TODAY. SHE IS ON NC 3L WHICH IS HER BASELINE AT HOME, SHE IS TAKING IN NORMAL NUTRITION, FAMILY BRINGING IN SOME OF HER FAVORITES. SHE HAD THE DUTTA CATHETER REMOVED AND HAS BEEN UP AND INDEPENDENT IN HER ROOM ALL AFTERNOON. SHE IS HOPING THAT SHE CAN GO HOME TOMORROW. NO FURTHER CHANGES.
--- NOTE | 2022-04-05 19:15 | NUR ---
ASSUMED CARE OF PT FROM KD KENNY. PT INDEPENDENT IN ROOM. A&O X4. 3L O2 VIA NC. ABLE TO MAKE NEEDS KNOWN.
--- NOTE | 2022-04-05 20:30 | NUR ---
PHONE CALL TO DR SILVERIO RE: STEROIDS AND NSAIDS ON EMAR AND PT'S CHRONIC NSAID USE. OK TO GIVE BOTH.
--- NOTE | 2022-04-06 05:30 | NUR ---
SUMMARY NO ACUTE EVENTS OVERNIGHT. PT IS INDEPENDENT IN ROOM. EATING AND DRINKING INDEPENDENTLY. 3L O2 VIA NC. VSS. REMOVED IV RAC. IV R WRIST PATENT W/SALINE LOCK. IV LFA PATENT W/SALINE LOCK.
[2022-04-06] MEDS ORDERED: IPRAT-ALBUT 0.5-3 ML INH (11:49)
[2022-04-06] MEDS ORDERED: ALBU2.5V5 INH (11:49)
[2022-04-06] MEDS ORDERED: DILT120 PO (11:50)
[2022-04-06] MEDS ORDERED: IBUP400 PO (11:51)
[2022-04-06] MEDS ORDERED: PRED20 PO (11:53)
[2022-04-06] MEDS ORDERED: PARO20 PO (11:53)
--- NOTE | 2022-04-06 12:30 | NUR ---
DISCHARGE: PT'S IVS DC'D WNL. GIVEN INSTRUCTIONS REGARDING MEDICATION CHANGES AND FOLLOW UP APPOINTMENTS. DENIED FURTHER QUESTIONS OR CONCERNS. ESCORTED OUT VIA WHEEL CHAIR BY HOSPITAL STAFF.
--- NOTE | 2022-04-06 13:39 | NUR ---
Spiritual care visit conducted. Patient is lying in bed and alert. She tells me about her family unit complications and some of her concerns about returning home. She talks about her deep wishes for her family. Although there have been enormous gains they still have a ways to go. She is tearful at times but she also poccesses a deep basilia in God and belief that her family will continue to move towards health and wholeness. Pt's son, Naman, arrives in patient's room to take her home and so after visiting with Naman I provide a prayer and blessing. Patient voiced appreciation for the time, care and kindness given by spiritual care and showed signs of an elevated mood and of being encouraged in her basilia.
== END 2022-04-06 12:45 | disposition home or self-care (01) | DRG 208 ==
LOC: ER 12:49 → ICUE 20:51 → ICUW 20:51 → ICUE 21:47
PROVIDERS: Emergency Medicine; Family Medicine; Internal Medicine Critical Care Medicine; Student in an Organized Health Care Education/Training Program; ADMIT Student in an Organized Health Care Education/Training Program
PROC: 3E033XZ Introduction of Vasopressor into Peripheral Vein, Percutaneous Approach (ICD-10-PCS; principal; 2022-04-02)
PROC: 5A09357 Assistance with Respiratory Ventilation, Less than 24 Consecutive Hours, Continuous Positive Airway Pressure (ICD-10-PCS; 2022-04-02)
PROC: 5A1945Z Respiratory Ventilation, 24-96 Consecutive Hours (ICD-10-PCS; 2022-04-02)
PROC: 0BH17EZ Insertion of Endotracheal Airway into Trachea, Via Natural or Artificial Opening (ICD-10-PCS; 2022-04-02)
DX: J96.02 Acute respiratory failure with hypercapnia (principal); E43 Unspecified severe protein-calorie malnutrition; R57.9 Shock, unspecified; E87.1 Hypo-osmolality and hyponatremia; Z68.1 Body mass index [BMI] 19.9 or less, adult; F17.210 Nicotine dependence, cigarettes, uncomplicated; J43.9 Emphysema, unspecified; Z51.5 Encounter for palliative care; I48.0 Paroxysmal atrial fibrillation; F41.9 Anxiety disorder, unspecified; Z20.822 Contact with and (suspected) exposure to COVID-19; B96.89 Other specified bacterial agents as the cause of diseases classified elsewhere; Z79.899 Other long term (current) drug therapy; Z79.51 Long term (current) use of inhaled steroids; Z79.52 Long term (current) use of systemic steroids; Z99.81 Dependence on supplemental oxygen; Z79.01 Long term (current) use of anticoagulants; Z86.16 Personal history of COVID-19; Z79.2 Long term (current) use of antibiotics
CPT/HCPCS: 0241U; 31500; 36415; 36600; 51702; 70450; 71045; 71260; 80048; 80053; 81001; 82140; 82803; 83605; 83735; 83880; 84484; 85025; 85027; 87040; 87070; 87077; 87185; 87205; 93005; 93010; 94002; 94003; 94640; 94644; 94660; 94664; 94760; 94762; 96365-59; 96375-59; 96376-59; 99291-25; A9270; C9113; G0480; J0456; J0696; J1650; J1956; J2060; J2405; J2704; J2930; J3010; J3475; J7030; J7050; J7060; J7120; J7512; Q9967

== ENCOUNTER → 2022-04-23 | Emergency (ER) | payer OTHER ==
[~2022-04-23] VITALS: Ht 157.5 cm; Wt 33.6 kg
[~2022-04-23] MED LIST changes: +ALBU2.5V5 INH; +DILT120 PO; +IBUP400 PO; +IPRAT-ALBUT 0.5-3 ML INH
== END ==
LOC: ER 12:06
DX: M79.89 Other specified soft tissue disorders (principal); J44.9 Chronic obstructive pulmonary disease, unspecified; F17.210 Nicotine dependence, cigarettes, uncomplicated; Z79.899 Other long term (current) drug therapy; Z79.52 Long term (current) use of systemic steroids; Z79.02 Long term (current) use of antithrombotics/antiplatelets
CPT/HCPCS: 93971

== ENCOUNTER 2024-01-15 13:15 | Inpatient (IN) | payer OTHER ==
[2024-01-15] VITALS (15 sets, daily range): BP systolic 79–113; BP diastolic 30–66
[~2024-01-15] VITALS: Ht 162.6 cm; Wt 39.6 kg
[2024-01-15 14:31] LABS: BASOPHILS ABSOLUTE AUTO 0.03 K/mm3 (0.00-0.23); BASOPHILS PERCENT AUTO 0 % (0-2); EOSINOPHILS ABSOLUTE AUTO 0.06 K/mm3 (0.00-0.68); EOSINOPHILS PERCENT AUTO 1 % (0-6); Hematocrit 32.5 % (33.0-51.0); Hemoglobin 9.6 g/dL (11.5-16.0); IMMATURE GRAN ABSOLUTE AUTO 0.06 K/mm3 (0.00-0.10); IMMATURE GRAN PERCENT AUTO 1 % (0-1); LYMPHOCYTES ABSOLUTE AUTO 0.74 K/mm3 (0.84-5.20); LYMPHOCYTES PERCENT AUTO 6 % (21-46); MONOCYTES ABSOLUTE AUTO 0.73 K/mm3 (0.16-1.47); MONOCYTES PERCENT AUTO 6 % (4-13); Mean Corpuscular HGB 31.2 pg (26.0-34.0); Mean Corpuscular HGB Conc 29.5 g/dL (31.5-36.5); Mean Corpuscular Volume 106 fL (80-100); Mean Platelet Volume 9.4 fL (9.1-12.4); NEUTROPHILS PERCENT AUTO 86 % (41-73); Platelet Count 251 K/mm3 (150-400); RDW Coefficient Variation 12.6 % (11.7-14.2); RDW Standard Deviation 49.1 fL (35.1-46.3); Red Blood Cell Count 3.08 M/mm3 (3.80-5.20); White Blood Cell Count 11.62 K/mm3 (4.00-11.30)
[2024-01-15 14:49] LABS: PCO2 Arterial > 105 mmHg (35-45); PO2 Arterial 99.9 mmHg (80-100); pH Blood Arterial 7.14 (7.35-7.45)
[2024-01-15 14:53] LABS: Alanine Aminotransfer (ALT/SGP 46 U/L (12-78); Albumin, Blood 3.3 g/dL (3.4-5.0); Albumin/Globulin Ratio 0.8 (0.8-1.8); Alk Phos 77 U/L (50-136); Anion Gap 5 mmol/L (3-11); Aspartate Aminotrans (AST/SGOT 39 U/L (12-37); Bilirubin, Total 0.3 mg/dL (0.1-1.0); Blood Urea Nitrogen 14 mg/dL (8-24); Bun/Creatinine Ratio 38.7 (12.0-20.0); CO2, Blood 39 mmol/L (21-32); Calcium, Blood 9.1 mg/dL (8.5-10.1); Chloride, Blood 94 mmol/L (98-108); Creatinine, Blood 0.36 mg/dL (0.40-1.00); Globulin, Blood 4.1 g/dL (2.2-4.0); Glomerular Filtration Rate 115 (60-); Glucose, Blood 102 mg/dL (70-99); Potassium, Blood 5.2 mmol/L (3.5-5.5); Sodium, Blood 133 mmol/L (136-145); Total Protein, Blood 7.4 g/dL (6.4-8.2)
[2024-01-15] MEDS ORDERED: propofoL 100 ML IV SCH (15:10)
[2024-01-15] MEDS ORDERED: Cefepime HCl 2,000 MG in NS 50 ML IV ONE (15:30)
[2024-01-15] MEDS ORDERED: Vancomycin HCL 1,000 MG in NS 250 ML IV ONE (15:30)
[2024-01-15] MEDS ORDERED: NS 1,000 ML IV ONE (15:33)
[2024-01-15 15:41] LABS: International Normalized Ratio 0.9; Prothrombin Time Results 9.7 Sec (9.7-11.5)
[2024-01-15 15:52] LABS: Bilirubin, Direct <0.1 mg/dL (0.0-0.3); Bilirubin, Indirect Unable to Calculate mg/dL (0.1-0.7); Phosphorus, Blood 3.7 mg/dL (2.5-4.9)
[2024-01-15] MEDS ORDERED: SuccINYLCHOLINE Chloride 100 MG/5 ML 5MLSYR IV ONE (16:47)
[2024-01-15] MEDS ORDERED: Etomidate 2MG / ML 10ML Vial XX ONE (16:47)
[2024-01-15] MEDS ORDERED: NS 1,000 ML IV SCH ×3 (17:15→18:05)
[2024-01-15 18:03] LABS: Influenza A, PCR NEGATIVE (NEGATIVE); Influenza B, PCR NEGATIVE (NEGATIVE); Resp Syncytial Virus, PCR NEGATIVE (NEGATIVE); SARS-Cov-2 (COVID-19) PCR, MMC NEGATIVE (NEGATIVE)
[2024-01-15] MEDS ORDERED: LORazepam 2 MG/ML 1ML Injection IV PRN (18:05)
[2024-01-15] MEDS ORDERED: Ondansetron HCl 2 MG / ML 2ML Vial IV PRN (18:05)
[2024-01-15] MEDS ORDERED: Ipratropium/Albuterol SulF 2.5-0.5MG/3 ML Amp INH SCH ×2 (18:10→20:55)
[2024-01-15] MEDS ORDERED: Albuterol 2.5 MG/3 ML VIAL INH PRN (18:10)
[2024-01-15] MEDS ORDERED: FLU VACC TS2024-25(6MOS UP)/PF 45 MCG/0.5 ML SYRINGE IM SCH (18:10)
[2024-01-15] MEDS ORDERED: Cetylpyridinium Chloride 1 EA MISC MT SCH ×2 (18:10→20:50)
[2024-01-15 18:20] LABS: Base Excess Venous 8.7 mmol/L; Bicarbonate Venous 31.2 mmol/L (24.0-30.0); pH Blood Venous 7.29 (7.34-7.37)
[2024-01-15] MEDS ORDERED: Azithromycin 500 MG in NS 250 ML IV SCH (19:00)
[2024-01-15] MEDS ORDERED: LORazepam 2 MG/ML 1ML Injection IV ONE (19:00)
[2024-01-15] MEDS ORDERED: MethylPREDNISolone Sod Succ 125 MG Vial IV SCH (19:00)
[2024-01-15] MEDS ORDERED: NS 500 ML IV ONE (20:00)
[2024-01-15] MEDS ORDERED: NS 250 ML IV PRN (20:10)
[2024-01-15] MEDS ORDERED: Pantoprazole Sodium 40 MG Injection IV SCH (21:00)
[2024-01-15] MEDS ORDERED: CefTRIAXone Sodium 1,000 MG in NS 100 ML IV SCH (21:00)
[2024-01-15] MEDS ORDERED: Lactobacil 2-S.Thermo-Bifido 1 1 Cap PT SCH (21:00)
[2024-01-15] MEDS ORDERED: FentaNYL Citrate 50 MCG/ML 2 ML Injection IV PRN (21:15)
[2024-01-15] MEDS ORDERED: Midazolam HCl 5 MG / ML 5ML Vial IV PRN (21:15)
[2024-01-16] VITALS (89 sets, daily range): BP systolic 95–186; BP diastolic 54–123
[2024-01-16] MEDS ORDERED: Hydrogen Peroxide 1.5 % Solution MT SCH ×2
[2024-01-16] MEDS ORDERED: MethylPREDNISolone Sod Succ 125 MG Vial IV SCH
--- NOTE | 2024-01-16 00:15 | NUR ---
ASSUMED CARE PT INTUBATED AND SEDATED; SPO2 >92%; MAP >65 (LEVOPHED INFUSING); RATE IN THE 70'S. PT PUPILS UNEQUAL W/ LEFT LARGER THAN RIGHT; PREVIOUS RN CONFIRMED THAT THIS WAS PRESENT UPON ADMIT AND THAT ER DOCTOR WAS AWARE. DR FU WAS AT BEDSIDE AND IS AWARE OF UNEQUAL PUPILS. RESTING QUIETLY AT THIS TIME.
[2024-01-16 00:22] LABS: Source, Urine Foley catheter
[2024-01-16 00:29] LABS: Bilirubin, Urine Neg (Neg); Blood, Urine 3+ (Neg); Glucose Qualitative, Urine Neg (Neg); Ketones, Urine Neg (Neg); Leukocyte Esterase, Urine Neg (Neg); Nitrite, Urine Neg (Neg); Protein, Urine 3+ (Neg); Urobilinogen, Urine NORM (Normal)
[2024-01-16 00:36] LABS: Appearance, Urine Clear (Clear); Color, Urine Yellow (P-Yellow)
[2024-01-16 00:37] LABS: Bacteria Not Seen /hpf; Squamous Epithelial Cells Not Seen /hpf (Few); White Blood Cells, Urine 0-2 /hpf (0-5)
--- NOTE | 2024-01-16 02:51 | NUR ---
UPDATE START OF SHIFT PT SELF-EXTUBATED PREVIOUS SHIFT; PRECEDEX HAD BEEN INITIATED BY PREVIOUS RN AND PLACED ON BIPAP. PT INITIALLY TACHYPNEIC, HYPERTENSIVE, AND TACHYCARDIC AT START OF SHIFT, BUT PRECEDEX WAS EFFECTIVE AND PT VS STABILIZED. ABG DRAWN BY RT AROUND 0150 AND PT HAD EXPRESSED TO RT THAT SHE WAS FEELING SOB AND WANTED TO BE ON HOSPICE. WHEN THIS RN ARRIVED IN ROOM PT WAS DYSPNEIC AND EXPRESSED DESIRE FOR A BREAK FROM BIPAP; ABG RESULT READ BACK AND PT WAS PLACED ON NC 7L; INFORMED PT THAT 5-10 MINUTE BREAK BEFORE BIPAP NEEDED TO BE PLACED BACK ON. PT ALSO EXPRESSED DESIRE TO BE ON HOSPICE TO THIS RN AND WHEN DISCUSSING POSSIBILITY OF REINTUBATION PT STATED NO. WITHIN 5 MINUTES OF PLACING PT ON NC PT BECAME TACHYCARDIC W/ HR 190-200'S. DR SILVERIO CALLED AND CAME TO BEDSIDE; PT WAS PLACED BACK ON BIPAP. LABS DRAWN AND ATIVAN GIVEN PER ORDER. DR SILVERIO INFORMED OF PT'S DESIRE FOR HOSPICE AND TO NOT BE REINTUBATED. DR SILVERIO DISCUSSED W/ PT ABOUT DNR/DNI STATUS AND PT EXPRESSED DESIRE TO BE DNR. PT NODDING YES WHEN ASKED IF SHE UNDERSTOOD THAT SHE WOULD IF SHE NEEDED INTUBATION, CPR, ETC. AND DID NOT GET IT D/T DNR STATUS. PT IN DISTRESS, BUT FOLLOWED COMMANDS, STATED SHE WAS AT [facility]. DAUGHTER WAS CALLED TWICE TO INFORM ABOUT PT'S DESIRE W/ NO ANSWER. PT IS RESTING QUIETLY AT THIS TIME; HR 100'S, SPO2 >92%, AND SBP 110'S. DR SILVERIO NOTIFIED OF BNP AND CURRENT VS W/ ORDERS TO PUT MAINTENANCE FLUIDS ON STANDBY W/ ORDER FOR ECHO TDAY.
[2024-01-16 03:31] LABS: BASOPHILS ABSOLUTE AUTO 0.01 K/mm3 (0.00-0.23); BASOPHILS PERCENT AUTO 0 % (0-2); EOSINOPHILS PERCENT AUTO 0 % (0-6); Hematocrit 27.8 % (33.0-51.0); Hemoglobin 8.1 g/dL (11.5-16.0); IMMATURE GRAN ABSOLUTE AUTO 0.03 K/mm3 (0.00-0.10); IMMATURE GRAN PERCENT AUTO 0 % (0-1); LYMPHOCYTES ABSOLUTE AUTO 0.18 K/mm3 (0.84-5.20); LYMPHOCYTES PERCENT AUTO 2 % (21-46); MONOCYTES ABSOLUTE AUTO 0.03 K/mm3 (0.16-1.47); MONOCYTES PERCENT AUTO 0 % (4-13); Mean Corpuscular HGB 30.1 pg (26.0-34.0); Mean Corpuscular HGB Conc 29.1 g/dL (31.5-36.5); Mean Corpuscular Volume 103 fL (80-100); Mean Platelet Volume 9.5 fL (9.1-12.4); NEUTROPHILS ABSOLUTE AUTO 8.13 K/mm3 (1.96-9.15); NEUTROPHILS PERCENT AUTO 97 % (41-73); Platelet Count 198 K/mm3 (150-400); RDW Coefficient Variation 12.5 % (11.7-14.2); RDW Standard Deviation 46.7 fL (35.1-46.3); Red Blood Cell Count 2.69 M/mm3 (3.80-5.20); White Blood Cell Count 8.38 K/mm3 (4.00-11.30)
[2024-01-16 03:49] LABS: Albumin, Blood 2.7 g/dL (3.4-5.0); Albumin/Globulin Ratio 0.7 (0.8-1.8); Bilirubin, Total 0.3 mg/dL (0.1-1.0); Bun/Creatinine Ratio 33.5 (12.0-20.0); Calcium, Blood 8.2 mg/dL (8.5-10.1); Creatinine, Blood 0.42 mg/dL (0.40-1.00); Globulin, Blood 3.7 g/dL (2.2-4.0); Magnesium, Blood 1.8 mg/dL (1.6-2.4); Potassium, Blood 4.6 mmol/L (3.5-5.5); Total Protein, Blood 6.4 g/dL (6.4-8.2)
[2024-01-16] MEDS ORDERED: Pantoprazole Sodium 40 MG Injection IV SCH (06:00)
[2024-01-16] MEDS ORDERED: Vancomycin HCL 750 MG in NS 250 ML IV SCH (06:00)
[2024-01-16 06:04] LABS: PCO2 Arterial 54.3 mmHg (35-45); pH Blood Arterial 7.38 (7.35-7.45)
[2024-01-16 06:05] LABS: PO2 Arterial 67.2 mmHg (80-100)
--- NOTE | 2024-01-16 06:28 | NUR ---
SHIFT SUMMARY NO ACUTE EVENTS OVERNIGHT; LEVOPHED OFF AT THIS TIME. PT NOW ROUSES TO VERBAL STIMULI, BUT NOT FOLLOWING COMMANDS AT THIS TIME.
[2024-01-16] MEDS ORDERED: Rivaroxaban 10 MG Tab PT SCH (09:00)
[2024-01-16] MEDS ORDERED: dilTIAZem HCL 30 MG TAB PT SCH (18:30)
[2024-01-16] MEDS ORDERED: dexmedeTOMIDine 100 ML IV SCH (18:35)
--- NOTE | 2024-01-16 19:03 | NUR ---
DAY SHIFT SUMMARY PT REMAINED INTUBATED THIS SHIFT UNTIL 1800 WHEN SHE WAS ABLE TO BEND OVER IN BED GETTING HER ARM BETWEEN THE ET TUBE AND THE INLINE SUCTION TUBE PULLING HER ET TUBE OUT APPROX 5-6CM. RT CALL TO THE AND PT EXTUBATED TO BIPAP. DR. FU CALLED AND NOTIFIED W TELEPHONE ORDERS TO KEEP PT ON BIPAP AND START PRECEDEX GTT. PT'S BP WNL AND STABLE SHIFT SHIFT. PT'S HR RISING THIS SHIFT W MONITOR SHOWING ST 110'S JUST PRIOR TO EXTUBATION SO PROVIDER NOTIFIED AND PLAN WAS TO RESTART PT CARDIZEM BEFORE THE PT PULLED HER ET TUBE. PT HAS BEEN RASS 0 TO -2 ALL SHIFT NODDING/SHAKING HER HEAD APPROPRIATELY TO YES OR NO QUESTIONS THIS SHIFT W PROPOFOL GTT AT 30 MCG/MIN. PT STARTED ON TF THIS SHIFT BUT THOSE WERE STOPPED AFTER EXTUBATION WHEN OG TUBE WAS PULLED OUT. PT AFEBRILE THIS SHIFT. PT'S DUTTA PATENT DRAINING 450ML SAMEER URINE THIS SHIFT. NS INFUSING AT 100ML/HR. PT CURRENTLY SITTING IN BED WEARING BIPAP W SETTINGS 12/6 W 30% FIO2. PRECEDEX GTT INFUSING AT 1.0 MCG/KG/HR. CENTRAL LINE DRESSING CHANGED THIS SHIFT. REPORT GIVEN TO JANET Olivas RN.
[2024-01-16 20:31] LABS: PCO2 Arterial 59.7 mmHg (35-45); PO2 Arterial 117 mmHg (80-100); pH Blood Arterial 7.32 (7.35-7.45)
[2024-01-17] VITALS (87 sets, daily range): BP systolic 107–202; BP diastolic 69–146
[2024-01-17 01:57] LABS: PCO2 Arterial 58.4 mmHg (35-45); pH Blood Arterial 7.32 (7.35-7.45)
[2024-01-17] MEDS ORDERED: LORazepam 2 MG/ML 1ML Injection ONE (02:16)
[2024-01-17] MEDS ORDERED: LORazepam 2 MG/ML 1ML Injection IV ONE (02:20)
[2024-01-17 02:22] LABS: BASOPHILS ABSOLUTE AUTO 0.01 K/mm3 (0.00-0.23); BASOPHILS PERCENT AUTO 0 % (0-2); EOSINOPHILS PERCENT AUTO 0 % (0-6); Hematocrit 31.6 % (33.0-51.0); Hemoglobin 9.7 g/dL (11.5-16.0); IMMATURE GRAN ABSOLUTE AUTO 0.08 K/mm3 (0.00-0.10); IMMATURE GRAN PERCENT AUTO 0 % (0-1); LYMPHOCYTES ABSOLUTE AUTO 0.85 K/mm3 (0.84-5.20); LYMPHOCYTES PERCENT AUTO 5 % (21-46); MONOCYTES ABSOLUTE AUTO 0.16 K/mm3 (0.16-1.47); MONOCYTES PERCENT AUTO 1 % (4-13); Mean Corpuscular HGB 31.2 pg (26.0-34.0); Mean Corpuscular HGB Conc 30.7 g/dL (31.5-36.5); Mean Corpuscular Volume 102 fL (80-100); Mean Platelet Volume 9.7 fL (9.1-12.4); NEUTROPHILS ABSOLUTE AUTO 17.31 K/mm3 (1.96-9.15); NEUTROPHILS PERCENT AUTO 94 % (41-73); Platelet Count 306 K/mm3 (150-400); RDW Coefficient Variation 12.7 % (11.7-14.2); RDW Standard Deviation 46.8 fL (35.1-46.3); Red Blood Cell Count 3.11 M/mm3 (3.80-5.20); White Blood Cell Count 18.41 K/mm3 (4.00-11.30)
[2024-01-17] MEDS ORDERED: Magnesium Sulf 2 GM/Water 50ML 50 ML IV ONE (02:30)
[2024-01-17 02:37] LABS: Anion Gap 8 mmol/L (3-11); Blood Urea Nitrogen 16 mg/dL (8-24); CO2, Blood 29 mmol/L (21-32); Calcium, Blood 8.4 mg/dL (8.5-10.1); Chloride, Blood 107 mmol/L (98-108); Creatinine, Blood 0.44 mg/dL (0.40-1.00); Glomerular Filtration Rate 110 (60-); Glucose, Blood 154 mg/dL (70-99); Phosphorus, Blood 4.1 mg/dL (2.5-4.9); Potassium, Blood 4.9 mmol/L (3.5-5.5); Sodium, Blood 139 mmol/L (136-145)
--- NOTE | 2024-01-17 04:07 | NUR ---
UPDATE START OF SHIFT PT SELF-EXTUBATED PREVIOUS SHIFT; PRECEDEX HAD BEEN INITIATED BY PREVIOUS RN AND PLACED ON BIPAP. PT INITIALLY TACHYPNEIC, HYPERTENSIVE, AND TACHYCARDIC AT START OF SHIFT, BUT PRECEDEX WAS EFFECTIVE AND PT VS STABILIZED. ABG DRAWN BY RT AROUND 0150 AND PT HAD EXPRESSED TO RT THAT SHE WAS FEELING SOB AND WANTED TO BE ON HOSPICE. WHEN THIS RN ARRIVED IN ROOM PT WAS DYSPNEIC AND EXPRESSED DESIRE FOR A BREAK FROM BIPAP; ABG RESULT READ BACK A PT WAS PLACED ON NC 7L; INFORMED PT THAT 5-10 MINUTE BREAK BEFORE BIPAP NEED TO BE PLACED BACK ON. PT ALSO EXPRESSED DESIRE TO BE ON HOSPICE TO THIS RN A WHEN DISCUSSING POSSIBILITY OF REINTUBATION PT STATED NO. WITHIN 5 MINUTES O PLACING PT ON NC PT BECAME TACHYCARDIC W/ HR 190-200'S. DR SILVERIO CALLED AND CAME TO BEDSIDE; PT WAS PLACED BACK ON BIPAP. LABS DRAWN AND ATIVAN GIVE PER ORDER. DR SILVERIO INFORMED OF PT'S DESIRE FOR HOSPICE AND TO NOT BE REINTUBATED. DR SILVERIO DISCUSSED W/ PT ABOUT DNR/DNI STATUS AND PT EXPRESSED DESIRE TO BE DNR. PT NODDING YES WHEN ASKED IF SHE UNDERSTOOD THAT SHE WOULD IF SHE NEEDED INTUBATION, CPR, ETC. AND DID NOT GET IT D/T DNR STATUS. PT IN DISTRESS, BUT FOLLOWED COMMANDS, STATED SHE WAS AT [facility]. DAUGHTER WAS CALLED TWICE TO INFORM ABOUT PT'S DESIRE W/ NO ANSWER. PT IS RESTING QUIETLY AT THIS TIME; HR 100'S, SPO2 >92%, AND SBP 110'S. DR SILVERIO NOTIFIED OF BNP AND CURRENT VS W/ ORDERS TO PUT MAINTENANCE FLUIDS ON STANDBY W/ ORDER FOR ECHO TDAY.
--- NOTE | 2024-01-17 06:19 | NUR ---
SHIFT SUMMARY PT IS RESTING QUIETLY AT THIS TIME; BIPAP 14/7 30%; NSR 90'S; SPO2 >92%; MAP >65. PT DROWSY, BUT AROUSES TO VERBAL STIMULI. PT NO LONGER APPEARS TO BE IN RESPIRATORY DISTRESS AT THIS TIME AND IS RESTING QUIETLY. NO ACUTE EVENTS SINCE PREVIOUS NOTE (SEE PREVIOUS NOTE FOR ACUTE EVENT).
--- NOTE | 2024-01-17 07:05 | NUR ---
ASSUMED CARE. PT RECLINING IN BED W/ BIPAP ON AT 14/7 40% FIO2. HER RESPIRATIONS ARE EVEN AND TACHYPNIC. SHE RESPONDS BRIEFLY TO VERBAL STIMULI. PRECEDEX IS AT 1.2MCG/KG/HR. SPO2 IS >94%. SHE IS RESTING WITH HER EYES CLOSED. PT IS ON CONTINUOUS CARDIAC MONITORING IN NSR. SYSTOLIC BP >130, MAP >70. HR IN 60-70S. PT HAS NOT HAD BM PER NOC RN, SHE HAS DUTTA CATH PATENT AND DRAINING CLEAR YELLOW URINE TO GRAVITY. BED IN LOWEST POSITION, CALL LIGHT IN REACH.
[2024-01-17] MEDS ORDERED: Furosemide 10 MG/ML 4ML Vial IV SCH (09:00)
[2024-01-17] MEDS ORDERED: Enoxaparin 40 MG/0.4 ML SYR SC SCH (09:00)
--- NOTE | 2024-01-17 17:11 | NUR ---
MET WITH PATIENT THIS MORNING WITH DR GANT. WE DISCUSSUSED HER OPTIONS FOR CARE. PROVIDER RELAYED THAT SHE COULD GO HOME ON HOSPICE OR SHE COULD GO ON COMFORT CARE IN THE HOSPITAL SETTING. PATIENT WANTS TO GO HOME ON HOSPICE SERVICES. DISCUSSED THIS WITH HER LATER WITH HER SON AND DAUGHTER PRESENT AND ANSWERED THEIR QUESTIONS. RELAYED INFORMATION TO CASE MANAGMENT.
--- NOTE | 2024-01-17 18:30 | NUR ---
SHIFT SUMMARY PT HAS BEEN ALERT AND ORIENTED THIS SHIFT TO SITUATION, SELF, PLACE AND FAMILY WITH HER. SHE IS ABLE TO ANSWER QUESTIONS AND OBEY COMMANDS. PT STOOD TO TRANSFER TO RECLINER, SHE WAS WEAK AND SHAKY. PT IS ON PRECEDEX 1.0MCG/MIN W/ NS TKO. PT HAS SWITCHED BETWEEN BIPAP 03/03 TO A NC 2-3LPM 02 SEVERAL TIMES TODAY. SHE TIRES AFTER AN HOUR OR TWO ON NC. DUTTA CATH PATENT AND DRAINING CLEAR YELLOW URINE TO GRAVITY. NO BM THIS SHIFT. PT TRANSITIONED TO HOSPICE AND REQUESTED FOOD. DR. GANT APPROVED THIS REQUEST AND PATIENT CAN NOW EAT REGULAR DIET PER HER REQUEST. DINNER TRAY ORDERED AND PATIENT INFORMED, BUT SHE WAS TOO TIRED TO EAT DINNER AFTER FINISHING HER BREAK FROM BIPAP. FAMILY HAS BEEN AT BEDSIDE THROUGHTOUT DAY. BED IN LOWEST POSITION, CALL LIGHT IN REACH.
--- NOTE | 2024-01-17 20:00 | NUR ---
ASSUMPTION OF CARE PT LYING IN BED WITH BIPAP ON, 14 7 16/MIN AND 30%FIO2 WITH 97% SATURATION. PT NOT IN DISTRESS AND RESPIRATIONS UNLABORED. PT SOMNOLENT BUT AWAKENS TO VOICE AND ANSWERS ALL ORIENTATION QUESTIONS CORRECTLY. PRECEDEX INFUSING AT 1.0 MCG/KG/HR. HR 100S SINUS RHYTHM AND BP STABLE. NO CHEST PAIN OR SOB. PT DENIES ABDOMINAL PAIN. ABDOMEN DISTENDED BUT NON TENDER TO PALPATION. DUTTA PATENT AND DRAINING PALE YELLOW URINE, THOUGH PT C/O BLADDER PRESSURE. PT HAS CALL LIGHT AND KNOWS HOW TO USE IT. BED IN LOWEST POSITION.
--- NOTE | 2024-01-17 21:30 | NUR ---
DIET/PO INTAKE UPDATE PT CONSUMED 100% OF ENTREE DINNER, PLUS APPLESAUCE AND WATER AND DECAF COFFEE, WITHOUT INCIDENT.
[2024-01-18] VITALS (31 sets, daily range): BP systolic 125–162; BP diastolic 71–108
--- NOTE | 2024-01-18 00:45 | NUR ---
UPDATE- CHEST PAIN PT COMPLAINS OF CHEST PAIN WITHOUT PRESSURE, SHARP RADIATING TO BACK. PT SAYS SHE HAS EXPERIENCED PAIN LIKE THIS BEFORE AND IT IS PROBABLY HEARTBURN. BUT SHE IS STILL CONCERNED. ECG ORDERED AND PERFORMED. RESULTS REVIEWED WITH CHARGE NURSE. ECG PUT IN PT FILE.
[2024-01-18 04:28] LABS: Bun/Creatinine Ratio 42.8 (12.0-20.0); Calcium, Blood 8.1 mg/dL (8.5-10.1); Creatinine, Blood 0.47 mg/dL (0.40-1.00); Magnesium, Blood 1.9 mg/dL (1.6-2.4); Phosphorus, Blood 3.2 mg/dL (2.5-4.9); Potassium, Blood 3.7 mmol/L (3.5-5.5)
--- NOTE | 2024-01-18 07:17 | NUR ---
SHIFT SUMMARY PT LYING IN BED, NOT IN DISTRESS AND RESPIRATIONS UNLABORED. PT SOMNOLENT BUT AWAKENS TO VOICE AND ANSWERS ALL ORIENTATION QUESTIONS CORRECTLY. PRECEDEX INFUSING AT 0.6 MCG/KG/HR. HR 100S SINUS RHYTHM AND BP STABLE. NO CHEST PAIN OR SOB. PT DENIES ABDOMINAL PAIN. ABDOMEN DISTENDED BUT NON TENDER TO PALPATION. DUTTA PATENT AND DRAINING PALE YELLOW URINE. PT HAS CALL LIGHT AND KNOWS HOW TO USE IT. BED IN LOWEST POSITION.
[2024-01-18] MEDS ORDERED: LORazepam 1 MG Tab PO PRN (08:20)
[2024-01-18] MEDS ORDERED: Losartan Potassium 25 MG Tab PO SCH (09:00)
[2024-01-18] MEDS ORDERED: Furosemide 40 MG Tab PO SCH (09:00)
[2024-01-18] MEDS ORDERED: Metoprolol Succinate 25 MG TABCR PO SCH (09:00)
[2024-01-18] MEDS ORDERED: Empagliflozin 10 MG TAB PO SCH (09:00)
[2024-01-18] MEDS ORDERED: Amoxicillin/Clavulanate K 500 MG Tab PO SCH (10:00)
--- NOTE | 2024-01-18 11:01 | NUR ---
ASSUMED CARE PT IS LYING IN BED AWAKE AND ALERT. ABLE TO ANSWER QUESTIONS APPROPRIATLY. ON 4L NC WITH SATS AT 100%, DENIES SOB/CP. L/S CLEAR/DIM IN BASES. ON CONTINUOUS CARDIAC MONITORING, SINUS TACH W/ HR IN THE 100-110'S. TOLERATING PO INTAKE W/O N/V. DUTTA PATENT AND DRAINING TO GRAVITY. PRECEDEX INFUSING AT 0.8 MCG/KG/HR. L SUBCLAVIAN CL IN PLACE. CALL LIGHT IN REACH.
[2024-01-18] MEDS ORDERED: AMOCLA500 PO (12:42)
[2024-01-18] MEDS ORDERED: FURO40 PO (12:43)
[2024-01-18] MEDS ORDERED: LOSA25 PO (12:43)
[2024-01-18] MEDS ORDERED: LORA1 PO (12:43)
[2024-01-18] MEDS ORDERED: PANT20 PO (12:44)
[2024-01-18] MEDS ORDERED: METO25ER PO (12:44)
[2024-01-18] MEDS ORDERED: IPRAT-ALBUT 0.5-3 ML INH (12:45)
--- NOTE | 2024-01-18 12:59 | NUR ---
CASE CONFRENCE WITH [facility] [employer]. DISCUSSED CASE THIS MORNING WITH HARRIET. FAMILY HAD CALLED AFTERHOURS LINE AND REQUESTED TO BE SET UP WITH THEIR SERVICES. RELAYED THIS INFORMATION TO [facility] [employer].
--- NOTE | 2024-01-18 14:40 | NUR ---
DISCHARGE SUMMARY PT IS ALERT AND ORIENTED, ON 4L NC WITH SATS IN THE 90'S, DENIES SOB/CP. L/S CLEAR AND DIM IN THE BASES. BP STABLE, MAPS > 65, HR IN THE 90-100'S. DUTTA CATHETER AND CENTRAL LINE REMOVED W/O COMPLICATION. PARTNER AT BEDSIDE WITH PT'S BELONGINGS. DISCHARGE PACKET REVIEWED WITH PARTNER, QUESTIONS ADDRESSED. HOSPICE HAS BEEN SET UP PRIOR TO DC. TRANSPORT TO ESCORT PT AND SPOUSE OUT VIA GURNEY.
[2024-01-18] MEDS ORDERED: Rivaroxaban 10 MG Tab PO SCH (18:00)
[2024-01-19] MEDS ORDERED: PredniSONE 20 MG Tab PO SCH (08:00)
== END 2024-01-18 14:13 | disposition hospice, home (50) | DRG 871 ==
LOC: ER 13:15 → ERHOLD 17:29 → ICUE 17:29
PROVIDERS: Internal Medicine; Internal Medicine Critical Care Medicine; Nurse Practitioner Acute Care; Student in an Organized Health Care Education/Training Program; ADMIT Internal Medicine
PROC: 0BH17EZ Insertion of Endotracheal Airway into Trachea, Via Natural or Artificial Opening (ICD-10-PCS; principal; 2024-01-15)
PROC: 5A1945Z Respiratory Ventilation, 24-96 Consecutive Hours (ICD-10-PCS; 2024-01-15)
PROC: 02HV33Z Insertion of Infusion Device into Superior Vena Cava, Percutaneous Approach (ICD-10-PCS; 2024-01-15)
PROC: 3E033XZ Introduction of Vasopressor into Peripheral Vein, Percutaneous Approach (ICD-10-PCS; 2024-01-15)
PROC: 5A09457 Assistance with Respiratory Ventilation, 24-96 Consecutive Hours, Continuous Positive Airway Pressure (ICD-10-PCS; 2024-01-16)
DX: A41.9 Sepsis, unspecified organism (principal); I50.43 Acute on chronic combined systolic (congestive) and diastolic (congestive) heart failure; J18.9 Pneumonia, unspecified organism; Z66 Do not resuscitate; Z99.81 Dependence on supplemental oxygen; J96.21 Acute and chronic respiratory failure with hypoxia; J96.22 Acute and chronic respiratory failure with hypercapnia; J44.1 Chronic obstructive pulmonary disease with (acute) exacerbation; E87.20 Acidosis, unspecified; J44.0 Chronic obstructive pulmonary disease with (acute) lower respiratory infection; Z68.1 Body mass index [BMI] 19.9 or less, adult; R65.20 Severe sepsis without septic shock; R63.6 Underweight; J43.9 Emphysema, unspecified; G89.4 Chronic pain syndrome; I48.0 Paroxysmal atrial fibrillation; F41.1 Generalized anxiety disorder; I11.0 Hypertensive heart disease with heart failure; F17.290 Nicotine dependence, other tobacco product, uncomplicated; Z79.01 Long term (current) use of anticoagulants; Z79.51 Long term (current) use of inhaled steroids; Z79.899 Other long term (current) drug therapy
CPT/HCPCS: 0241U; 31500; 36415; 36556; 36600; 51702; 70450; 71045; 71260; 72125; 80048; 80053; 80069; 81001; 82248; 82803; 82947; 83605; 83735; 83880; 84100; 84145; 84484; 85025; 85379; 85610; 85730; 87040; 87070; 87077; 87186; 87205; 93005; 93010; 93306; 94002; 94003; 94640; 94660; 94762; 96374-59; 99285-25; A9270; C1751; J0330; J0456; J0692; J0696; J1650; J1940; J2060; J2470; J2704; J2919; J3010; J3370; J3475; J7030; J7040; J7050; J7060; L0160; Q9967